=== PATIENT | male | born 1930 | race Hispanic/Latino ===

== ENCOUNTER 2018-02-07 09:08 | Inpatient (IN) | payer MEDICARE ==
[2018-02-07 09:23] VITALS: BMI 12.9
[2018-02-07] MEDS ORDERED: Dextrose 50% SYRINGE Inj (50 ml) ONE ×2 (09:42→10:39)
[2018-02-07] MEDS ORDERED: Dextrose 5%/0.9% NS 1,000 ML IV ONE ×3 (09:57→21:25)
[2018-02-07] MEDS ORDERED: Dextrose 50% SYRINGE Inj (50 ml) IVP STA ×2 (09:57→10:36)
[2018-02-07 10:13] LABS: VENOUS BLOOD GAS BASE EXCESS 7.7 mmol/L (0.0-2.0); VENOUS BLOOD GAS PCO2 59 mmHg (40-60); VENOUS BLOOD GAS PO2 11 mm/Hg (30-55); VENOUS BLOOD PH 7.38 (7.32-7.43)
[2018-02-07 10:23] LABS: ALB/GLOB RATIO 0.9 (1.0-2.1); ALBUMIN 3.4 g/dL (3.5-5.0); ALT/SGPT 18 U/L (21-72); AST/SGOT 34 U/L (17-59); BLOOD UREA NITROGEN 49 mg/dL (9-20); CALCIUM 8.8 mg/dl (8.6-10.4); GFR NON-AFRICAN AMERICAN > 60
--- NOTE | 2018-02-07 10:23 | C.PDOC ---
History Of Present Illness Patient ELLEN from home, found in his home weak appearing, c/o abdominal pain today. As per family at bedside, he has had poor PO intake for approx 1-2 weeks. They state he is typically thin (approx 100lbs), but in the past 2 month s he has lost more weight. He has PMHx of cigarette smoking, no other known issues but does not follow up regularly with physician. He was seen last thursday by his PMD, blood work was done but results are pending. Family states he is AAOx3 and ambulates with cane at his baseline, speaks only [place] Islander. Time Seen by Provider: 02/07/18 09:08 Chief Complaint (Nursing): Weakness/Neurological Deficit History Per: Family History/Exam Limitations: clinical condition, language barrier ([place] Islander only ) Onset/Duration Of Symptoms: Days Current Symptoms Are (Timing): Still Present Past Medical History Reviewed: Historical Data, Nursing Documentation, Vital Signs - Medical History Other PMH: tobacco use Family History: States: No Known Family Hx - Social History Hx Alcohol Use: No Hx Substance Use: No Review Of Systems Constitutional: Positive for: Weakness (generalized). Negative for: Fever, Chills Cardiovascular: Negative for: Chest Pain, Palpitations Respiratory: Negative for: Cough, Shortness of Breath Gastrointestinal: Positive for: Abdominal Pain. Negative for: Nausea, Vomiting, Diarrhea Genitourinary: Negative for: Dysuria, Hematuria Neurological: Negative for: Weakness, Numbness, Incoordination, Change in Speech, Headache, Dizziness Physical Exam - Physical Exam Appears: Non-toxic, Chronically Ill, Other (cachectic) Skin: Normal Color, Warm, Dry, Other (dry sclaey skin on extensors surfaces of arms/legs) Head: Atraumatic, Normacephalic Eye(s): bilateral: Normal Inspection, PERRL, EOMI Oral Mucosa: Dry Cardiovascular: Rhythm Regular Respiratory: Normal Breath Sounds, No Rales, No Rhonchi, No Wheezing Gastrointestinal/Abdominal: Bowel Sounds, Soft, Tenderness (mild diffuse TTP), No Distention, No Guarding, No Rebound ED Course And Treatment - Laboratory Results Result Diagrams: 02/07/18 10:07 02/07/18 10:07 O2 Sat by Pulse Oximetry: 100 (RA) Pulse Ox Interpretation: Normal - Radiology CXR: Interpreted by Me, Viewed By Me (B/L infiltrates vs nodules?) Progress Note: Blood work, CT head, CT chest/abd/pelvis, UA, EKG ordered and reviewed. 11:45am- Called by hematology lab - tech states there are immature cells on smear, will refer case to pathologist to be read tomorrow. ? blast cells/acute leukemia. 12:09- Spoke with software development leader Dr. Melendez, if BP drops then will consider for ICU. Patient going to CT scan chest/abd/pelvis - will reassess when returns. 1:20PM- Dr. Melendez software development leader has evaluated patient, is ok for telemetry floor. 1:35pm- Spoke with hospitalist, agrees with admission for pancytopenia, hypoglycemia, failure to thrive/cachexia, possible acute leukemia, dehydration. CT scan chest/abd/pelvis currently pending, they will follow. - Physician Consult Information Physician Contacted: Velasquez Santana Outcome Of Conversation: Discussed patient with hem/onc, would like medical insurance collector to call him ( wants flow cytometry ordered). Will notify. Disposition - Disposition Forms: [employer] (Greenlandic)
[2018-02-07 10:31] LABS: MEAN CORPUSCULAR HEMOGLOBIN 34.2 pg (27.0-31.0); MEAN CORPUSCULAR HGB CONC 33.8 g/dL (33.0-37.0); MEAN PLATELET VOLUME 11.3 fL (7.2-11.7); RBC 3.15 Mil/uL (4.40-5.90); RED CELL DISTRIBUTION WIDTH 14.2 % (11.5-14.5)
[2018-02-07 10:35] LABS: CK-MB 1.49 ng/mL (0.0-3.38); INR 1.2; PROTHROMBIN TIME 13.5 SECONDS (9.7-12.2)
[2018-02-07] MEDS ORDERED: Glucagon Recombinant 1 mg Inj IVPB STA (10:36)
[2018-02-07 10:38] LABS: HEMOGLOBIN 10.8 g/dL (12.0-18.0); MEAN CELL VOLUME 101.2 fL (80.0-94.0); WHITE BLOOD COUNT 1.2 K/uL (4.8-10.8)
[2018-02-07 11:05] LABS: LIPASE < 10 U/L (23-300)
[2018-02-07 11:41] LABS: SQUAMOUS EPITHIAL < 1 /hpf (0-5); URINE BACTERIA RARE (<OCC); URINE BILIRUBIN NEGATIVE (NEGATIVE); URINE CLARITY Hazy (Clear); URINE COLOR Yellow (YELLOW); URINE GLUCOSE (UA) 2+ mg/dL (Normal); URINE LEUKOCYTE ESTERASE NEG Leu/uL (Negative); URINE PROTEIN 1+ mg/dL (NEGATIVE)
[2018-02-07 11:43] LABS: URINE BLOOD TRACE-LYSED (NEGATIVE)
[2018-02-07] MEDS ORDERED: Glucagon Recombinant 1 mg Inj ONE (12:00)
--- NOTE | 2018-02-07 15:03 | CT ---
Date of service: 02/07/2018 PROCEDURE: CT HEAD WITHOUT CONTRAST. HISTORY: weakness COMPARISON: None available. TECHNIQUE: Axial computed tomography images were obtained through the head/brain without intravenous contrast. Radiation dose: Total exam DLP = 1175.83 mGy-cm. This CT exam was performed using one or more of the following dose reduction techniques: Automated exposure control, adjustment of the mA and/or kV according to patient size, and/or use of iterative reconstruction technique. FINDINGS: HEMORRHAGE: No acute parenchymal, subarachnoid or extra-axial hemorrhage. BRAIN: Moderate diffuse confluent chronic white matter ischemic changes seen extending peripherally into deep and subcortical white matter both cerebral hemispheres. There is extension of these changes into the white matter tracts of both basal nuclei. Additionally, scattered more discrete chronic appearing bilateral basal nuclei lacunar type infarcts also present. Note the possibility of a small hyperacute infarct cannot be excluded. Moderate generalized volume loss. No obvious parenchymal nor extra-axial mass or collection seen on this noncontrast exam Minor vascular calcifications both carotid siphons. VENTRICLES: No obstructive hydrocephalus. CALVARIUM: Unremarkable. PARANASAL SINUSES: Subtotal opacification right maxillary antrum with sclerosis and thickening of the posterolateral and anterior veronica.. MASTOID AIR CELLS: Unremarkable as visualized. No inflammatory changes. OTHER FINDINGS: None. IMPRESSION: Normal CT of the Head.
--- NOTE | 2018-02-07 15:27 | RAD ---
Date of service: 02/07/2018 HISTORY: Cachexia. COMPARISON: Comparison made with prior chest radiograph 02/05/2018. FINDINGS: LUNGS: Hyperinflation with extensive centrilobular and panlobular as well as paraseptal emphysematous changes. Localized of spiculated pleural-based mass density in the left lateral upper lung field could represent post inflammatory scarring however possibility of a pleural-based neoplasm not excluded. Clinical correlation recommended.. There appears to be patchy infiltrate in the right mid to lower lung field. PLEURA: No significant pleural effusion identified, no pneumothorax apparent. CARDIOVASCULAR: Mild moderate aortic atherosclerotic calcification present. Normal cardiac size. No pulmonary vascular congestion. OSSEOUS STRUCTURES: No significant abnormalities. VISUALIZED UPPER ABDOMEN: Normal. OTHER FINDINGS: None. IMPRESSION: Hyperinflation with extensive centrilobular and panlobular as well as paraseptal emphysematous changes. Localized of spiculated pleural-based mass density in the left lateral upper lung field could represent post inflammatory scarring however possibility of a pleural-based neoplasm not excluded. Clinical correlation recommended.. There appears to be patchy infiltrate in the right mid to lower lung field.
--- NOTE | 2018-02-07 15:32 | CP.PCM.HP ---
"<Giovany Merritt - Last Filed: 02/07/18 16:46> History of Present Illness - History of Present Illness History of Present Illness: Mr. Ballesteros is an 88 year old Hebrew speaking male who presents from home due generalized weakness. Nephew at bedside. Per nephew, patient has poor PO intake for the past 1-2 weeks. For the past 2 months, the family has been noticing that he has been losing weight. Normally he weighs about 100 lbs. Per nephew he smokes cigars daily for over 50 years. Patient was seen by is PMD for symptoms and has bloodwork pending. Review of systems could not be obtained due to patient's mental status. Per nephew, patient is normally able to speak and understand everything but had difficulty during exam today. At baseline he can preform most of his ADL's, he walks with a cane, and he is AAOx3. ROS: Unobtainable. PMHx: Cataracts, macular degeneration, b/L hearing loss PSHx: Denies Allergies: NKDA SocialHx: Cigar smoker (more than 50 years per nephew), Social EtoH Use, Unknown illicit drug use FamHx: Brother - Prostate CA (Recently diagnosed) Meds: None PMD: Dr. Olson Present on Admission - Present on Admission Any Indicators Present on Admission: Yes Decubitus Ulcer Present: Yes Decubitus Ulcer Location: Gluteal Decubitus Ulcer Stage: I Review of Systems - Review of Systems Systems not reviewed;Unavailable: Altered Mental Status, Language Barrier Past Patient History - Past Social History Smoking Status: Former Smoker - PSYCHIATRIC Hx Substance Use: No - SURGICAL HISTORY Hx Surgeries: No Meds Allergies/Adverse Reactions: Allergies Allergy/AdvReac Type Severity Reaction Status Date / Time No Known Allergies Allergy Verified 02/07/18 13:46 Physical Exam - Constitutional Appears: Toxic, Older Than Stated Age, Cachectic, Chronically Ill - Head Exam Head Exam: ATRAUMATIC, NORMOCEPHALIC - Eye Exam Eye Exam: EOMI, Normal appearance, PERRL - ENT Exam ENT Exam: Mucous Membranes Dry - Neck Exam Neck exam: Negative for: Lymphadenopathy, Tenderness, Thyromegaly - Respiratory Exam Respiratory Exam: Clear to Auscultation Bilateral, NORMAL BREATHING PATTERN. absent: Accessory Muscle Use - Cardiovascular Exam Cardiovascular Exam: +S1, +S2 Additional comments: Decreased Heart Sounds. - GI/Abdominal Exam GI & Abdominal Exam: Normal Bowel Sounds, Soft. absent: Guarding, Organomegaly, Rebound, Rigid, Tenderness - Extremities Exam Extremities exam: Positive for: normal capillary refill, pedal pulses present. Negative for: pedal edema Additional comments: Bilateral Petechiae, Dry - Neurological Exam Neurological exam: Altered - Psychiatric Exam Psychiatric exam: Flat Affect - Skin Skin Exam: Dry, Normal Color, Warm Additional comments: Stage 1 Gluteal Ulcer Results - Vital Signs Recent Vital Signs: Last Vital Signs Temp 97.1 F L 02/07/18 09:30 Pulse 91 H 02/07/18 13:02 Resp 22 02/07/18 13:02 BP 123/41 L 02/07/18 13:02 Pulse Ox 100 02/07/18 13:40 - Labs Result Diagrams: 02/07/18 10:07 02/07/18 10:07 Labs: Laboratory Results - last 24 hr 02/07/18 02/07/18 02/07/18 10:07 10:07 10:07 WBC 1.2 L* RBC 3.15 L Hgb 10.8 L D Hct 31.8 L MCV 101.2 H D MCH 34.2 H MCHC 33.8 RDW 14.2 Plt Count 73 L D MPV 11.3 Differential Comment PT 13.5 H INR 1.2 APTT 32 pO2 VBG pH VBG pCO2 VBG HCO3 VBG Total CO2 VBG O2 Sat (Calc) VBG Base Excess VBG Potassium Glucose Lactate FiO2 Crit Value Called To Crit Value Called By Crit Value Read Back Blood Gas Notified Time Sodium 142 Potassium 3.8 Chloride 98 Carbon Dioxide 33 H Anion Gap 15 BUN 49 H Creatinine 1.0 Est GFR ( Amer) > 60 Est GFR (Non-Af Amer) > 60 Random Glucose 67 L Calcium 8.8 Total Bilirubin 1.2 AST 34 ALT 18 L D Alkaline Phosphatase 90 Total Creatine Kinase 269 H CK-MB (Mass) 1.49 Troponin I 0.0210 Total Protein 7.2 Albumin 3.4 L Globulin 3.8 Albumin/Globulin Ratio 0.9 L Lipase < 10 L Venous Blood Potassium Urine Color Urine Clarity Urine pH Ur Specific [place] Urine Protein Urine Glucose (UA) Urine Ketones Urine Blood Urine Nitrate Urine Bilirubin Urine Urobilinogen Ur Leukocyte Esterase Urine WBC (Auto) Urine RBC (Auto) Ur Squamous Epith Cells Urine Bacteria Hyaline Casts 02/07/18 02/07/18 10:08 11:33 WBC RBC Hgb Hct MCV MCH MCHC RDW Plt Count MPV Differential Comment PT INR APTT pO2 11 L VBG pH 7.38 VBG pCO2 59 VBG HCO3 28.6 VBG Total CO2 36.7 H VBG O2 Sat (Calc) 14.2 L VBG Base Excess 7.7 H VBG Potassium 3.5 L Glucose 61 L Lactate 2.2 H FiO2 21.0 Crit Value Called To Reginald sinclair Crit Value Called By Shaan Crit Value Read Back Y Blood Gas Notified Time 1014 Sodium 144.0 Potassium Chloride 107.0 Carbon Dioxide Anion Gap BUN Creatinine Est GFR ( Amer) Est GFR (Non-Af Amer) Random Glucose Calcium Total Bilirubin AST ALT Alkaline Phosphatase Total Creatine Kinase CK-MB (Mass) Troponin I Total Protein Albumin Globulin Albumin/Globulin Ratio Lipase Venous Blood Potassium 3.5 L Urine Color Yellow Urine Clarity Hazy Urine pH 5.0 Ur Specific [place] 1.021 Urine Protein 1+ H Urine Glucose (UA) 2+ H Urine Ketones 1+ H Urine Blood Trace-lysed Urine Nitrate Negative Urine Bilirubin Negative Urine Urobilinogen 4.0 Ur Leukocyte Esterase Neg Urine WBC (Auto) 1 Urine RBC (Auto) 2 Ur Squamous Epith Cells < 1 Urine Bacteria Rare Hyaline Casts 3-5 H Assessment & Plan - Assessment and Plan (Free Text) Assessment: 88 year old Hebrew speaking male with PMHx of cataracts, macular degeneration, b/L hearing loss, and tobacco abuse admitted for evaluation and treatment of failure to thrive. Plan: Failure to thrive Head CT (Admission): Moderate diffuse confluent chronic white matter ischemic changes seen extending peripherally into deep and subcortical white matter both cerebral hemispheres. There is extension of these changes into the white matter tracts of both basal nuclei. Additionally, scattered more discrete chronic appearing bilateral basal nuclei lacunar type infarcts also present. Note the possibility of a small hyperacute infarct cannot be excluded. Moderate generalized volume loss. No obvious parenchymal nor extra-axial mass or collection seen on this noncontrast exam. Minor vascular calcifications both carotid siphons. CXR (Admission):Hyperinflation with extensive centrilobular and panlobular as well as paraseptal emphysematous changes. Localized of spiculated pleural-based mass density in the left lateral upper lung field could represent post inflammatory scarring however possibility of a pleural-based neoplasm not excluded. Clinical correlation recommended. There appears to be patchy infiltrate in the right mid to lower lung field. Chest/Abd CT (Admission): PENDING READ EKG (Admission): Sinus Rhythm w/ marked sinus arrhythmia w/ first degree AV block. PENDING Official Read. -Anemia Workup -Blood Cultures | Urine Cultures -Palliative Care Consult -Speech/Swallow Eval -02 via [place] -ProCalcitonin -Vitals Q4H -HOB to 30degress -Consider Broad Spectrum Antibiotics. Meds: Marinol 2.5 BID D5 in NS @ 100mls/hr. Pancytopenia Ddx: Leukemia, Lung Malignancy, Myelodysplastic syndrome Heme/Onc Consult (Dr. Santana) -Anemia Workup -Flow Cytometry -Stool Occult Blood Stage I gluteal Ulcer Nursing Wound Care Air Mattress Meds: Neosporin PRN Obstructive Lung Disease CXR (Admission):Hyperinflation with extensive centrilobular and panlobular as well as paraseptal emphysematous changes. Localized of spiculated pleural-based mass density in the left lateral upper lung field could represent post inflammatory scarring however possibility of a pleural-based neoplasm not excluded. Clinical correlation recommended. There appears to be patchy infiltrate in the right mid to lower lung field. -02 via [place] -Consider Pulm Consult Meds: DuoNebs PRN. Proph SCD's NO pharm DVT proph due to pancytopenia GI proph not indicated Patient seen and discussed with Attending Giovany Merritt, PGY-2 <Aquilino Escamilla - Last Filed: 02/07/18 19:37> Results - Vital Signs Recent Vital Signs: Last Vital Signs Temp 101 F H 02/07/18 17:37 Pulse 105 H 02/07/18 17:37 Resp 22 02/07/18 17:37 BP 141/81 02/07/18 17:37 Pulse Ox 94 L 02/07/18 17:37 - Labs Result Diagrams: 02/07/18 10:07 02/07/18 10:07 Labs: Laboratory Results - last 24 hr 02/07/18 02/07/18 02/07/18 10:07 10:07 10:07 WBC 1.2 L* RBC 3.15 L Hgb 10.8 L D Hct 31.8 L MCV 101.2 H D MCH 34.2 H MCHC 33.8 RDW 14.2 Plt Count 73 L D MPV 11.3 Differential Comment Retic Count Haptoglobin PT 13.5 H INR 1.2 APTT 32 pO2 VBG pH VBG pCO2 VBG HCO3 VBG Total CO2 VBG O2 Sat (Calc) VBG Base Excess VBG Potassium Glucose Lactate FiO2 Crit Value Called To Crit Value Called By Crit Value Read Back Blood Gas Notified Time Sodium 142 Potassium 3.8 Chloride 98 Carbon Dioxide 33 H Anion Gap 15 BUN 49 H Creatinine 1.0 Est GFR ( Amer) > 60 Est GFR (Non-Af Amer) > 60 Random Glucose 67 L Hemoglobin A1c Calcium 8.8 Phosphorus Magnesium Iron TIBC % Saturation Ferritin Total Bilirubin 1.2 AST 34 ALT 18 L D Alkaline Phosphatase 90 Total Creatine Kinase 269 H CK-MB (Mass) 1.49 Troponin I 0.0210 Total Protein 7.2 Albumin 3.4 L Globulin 3.8 Albumin/Globulin Ratio 0.9 L Lipase < 10 L Prostate Specific Ag Vitamin B12 25-OH Vitamin D Total Folate Free T4 TSH 3rd Generation Venous Blood Potassium Urine Color Urine Clarity Urine pH Ur Specific [place] Urine Protein Urine Glucose (UA) Urine Ketones Urine Blood Urine Nitrate Urine Bilirubin Urine Urobilinogen Ur Leukocyte Esterase Urine WBC (Auto) Urine RBC (Auto) Ur Squamous Epith Cells Urine Bacteria Hyaline Casts 02/07/18 02/07/18 02/07/18 10:08 11:33 16:09 WBC RBC Hgb Hct MCV MCH MCHC RDW Plt Count MPV Differential Comment Retic Count Haptoglobin PT INR APTT pO2 11 L VBG pH 7.38 VBG pCO2 59 VBG HCO3 28.6 VBG Total CO2 36.7 H VBG O2 Sat (Calc) 14.2 L VBG Base Excess 7.7 H VBG Potassium 3.5 L Glucose 61 L Lactate 2.2 H FiO2 21.0 Crit Value Called To Reginald sinclair Crit Value Called By Shaan Crit Value Read Back Y Blood Gas Notified Time 1014 Sodium 144.0 Potassium Chloride 107.0 Carbon Dioxide Anion Gap BUN Creatinine Est GFR ( Amer) Est GFR (Non-Af Amer) Random Glucose Hemoglobin A1c Calcium Phosphorus Magnesium Iron < 10 L TIBC 181 L % Saturation 5.52 L Ferritin Total Bilirubin AST ALT Alkaline Phosphatase Total Creatine Kinase CK-MB (Mass) Troponin I Total Protein Albumin Globulin Albumin/Globulin Ratio Lipase Prostate Specific Ag Vitamin B12 25-OH Vitamin D Total Folate Free T4 TSH 3rd Generation Venous Blood Potassium 3.5 L Urine Color Yellow Urine Clarity Hazy Urine pH 5.0 Ur Specific [place] 1.021 Urine Protein 1+ H Urine Glucose (UA) 2+ H Urine Ketones 1+ H Urine Blood Trace-lysed Urine Nitrate Negative Urine Bilirubin Negative Urine Urobilinogen 4.0 Ur Leukocyte Esterase Neg Urine WBC (Auto) 1 Urine RBC (Auto) 2 Ur Squamous Epith Cells < 1 Urine Bacteria Rare Hyaline Casts 3-5 H 02/07/18 02/07/18 02/07/18 16:09 16:09 16:09 WBC RBC Hgb Hct MCV MCH MCHC RDW Plt Count MPV Differential Comment Retic Count 0.5 Haptoglobin 162.7 PT INR APTT pO2 VBG pH VBG pCO2 VBG HCO3 VBG Total CO2 VBG O2 Sat (Calc) VBG Base Excess VBG Potassium Glucose Lactate FiO2 Crit Value Called To Crit Value Called By Crit Value Read Back Blood Gas Notified Time Sodium Potassium Chloride Carbon Dioxide Anion Gap BUN Creatinine Est GFR ( Amer) Est GFR (Non-Af Amer) Random Glucose Hemoglobin A1c Calcium Phosphorus 0.9 L* Magnesium 2.1 Iron TIBC % Saturation Ferritin 456.0 Total Bilirubin AST ALT Alkaline Phosphatase Total Creatine Kinase CK-MB (Mass) Troponin I Total Protein Albumin Globulin Albumin/Globulin Ratio Lipase Prostate Specific Ag 0.647 Vitamin B12 607 25-OH Vitamin D Total Folate 5.2 Free T4 0.89 TSH 3rd Generation 1.10 Venous Blood Potassium Urine Color Urine Clarity Urine pH Ur Specific [place] Urine Protein Urine Glucose (UA) Urine Ketones Urine Blood Urine Nitrate Urine Bilirubin Urine Urobilinogen Ur Leukocyte Esterase Urine WBC (Auto) Urine RBC (Auto) Ur Squamous Epith Cells Urine Bacteria Hyaline Casts 02/07/18 02/07/18 16:09 16:09 WBC RBC Hgb Hct MCV MCH MCHC RDW Plt Count MPV Differential Comment Retic Count Haptoglobin PT INR APTT pO2 VBG pH VBG pCO2 VBG HCO3 VBG Total CO2 VBG O2 Sat (Calc) VBG Base Excess VBG Potassium Glucose Lactate FiO2 Crit Value Called To Crit Value Called By Crit Value Read Back Blood Gas Notified Time Sodium Potassium Chloride Carbon Dioxide Anion Gap BUN Creatinine Est GFR ( Amer) Est GFR (Non-Af Amer) Random Glucose Hemoglobin A1c 5.1 Calcium Phosphorus Magnesium Iron TIBC % Saturation Ferritin Total Bilirubin AST ALT Alkaline Phosphatase Total Creatine Kinase CK-MB (Mass) Troponin I Total Protein Albumin Globulin Albumin/Globulin Ratio Lipase Prostate Specific Ag Vitamin B12 25-OH Vitamin D Total < 12.8 L Folate Free T4 TSH 3rd Generation Venous Blood Potassium Urine Color Urine Clarity Urine pH Ur Specific [place] Urine Protein Urine Glucose (UA) Urine Ketones Urine Blood Urine Nitrate Urine Bilirubin Urine Urobilinogen Ur Leukocyte Esterase Urine WBC (Auto) Urine RBC (Auto) Ur Squamous Epith Cells Urine Bacteria Hyaline Casts Attending/Attestation - Attestation I have personally seen and examined this patient.: Yes I have fully participated in the care of the patient.: Yes I have reviewed all pertinent clinical information: Yes Notes (Text): Seen and examined by me. patient is weak and not able to give history. History taken from the Nephew at bedside .Patient lives alone,not ,no children His brothers visit him. patient was not eating well and loosing weight. He is a heavy smoker and heavy alcoholic. Has hearing problem. Vision is not good. patient brother He doesn't think that he has living will or advance directives As per his nephew his mother sister in law of him will be his personal development coach and brothers will be decision makers.We couldn't get his brothers I spoke to his sister in law.Patient was weak and not eating last two weeks No reported fever,no vomiting diarrhea. 1. Cachexia,hypoglycemia 2.Anemia,leukopenia r/o malignancy 3.fever 4.Possible aspiration pneumonia 5.dysphagia I agree with the resident's documentation"
[2018-02-07] MEDS ORDERED: Albuterol-Ipratrop 3 mg / 0.5 (3 ml) UD INH PRN (16:15)
[2018-02-07 16:37] LABS: IRON < 10 ug/dL (49-181)
[2018-02-07] MEDS ORDERED: Bacitracin/Neomycin/Polymyxin Oint(30GM) TOP PRN (16:38)
[2018-02-07 16:43] LABS: TOTAL IRON BINDING CAPACITY 181 ug/dL (250-450)
[2018-02-07 16:49] LABS: % IRON SATURATION 5.52 (20-55); FREE T4 0.89 ng/dL (0.78-2.19)
[2018-02-07] MEDS ORDERED: DEXTROSE IV ONE (17:37)
[2018-02-07] MEDS ORDERED: NS IV ONE (17:37)
[2018-02-07] MEDS ORDERED: SODIUM PHOSPHATE IV ONE (17:37)
[2018-02-07 17:38] LABS: FOLATE 5.2 ng/mL
--- NOTE | 2018-02-07 17:58 | CT ---
Date of service: 02/07/2018 PROCEDURE: CT Chest, Abdomen and Pelvis with intravenous contrast HISTORY: Cachexia. Abdominal pain, r/o malignancy chest and abdomen. COMPARISON: Correlation made with prior chest radiograph earlier same day TECHNIQUE: Contiguous helical/transaxial sections of the chest abdomen pelvis performed without oral or intravenous contrast material. Additional 2D sagittal and coronal reformats generated. Study is therefore limited as a result of the lack of oral and intravenous contrast material. Radiation dose: Total exam DLP = 200.58 mGy-cm. This CT exam was performed using one or more of the following dose reduction techniques: Automated exposure control, adjustment of the mA and/or kV according to patient size, and/or use of iterative reconstruction technique. FINDINGS: CT CHEST WITH CONTRAST: LUNGS: Extensive and severe centrilobular panlobular and paraseptal emphysematous changes are present. Large bulla seen in the posteromedial aspect of the right lower lobe redemonstrated is a pleural based nodular density right lateral upper lobe measuring approximately 16 x 12 mm and exhibits spiculated anterior medial and posterior borders. This lesion which exhibits spiculated borders.. This could conceivably represent old postinflammatory scarring however possibility of a neoplasm must be considered. Vague patchy infiltrate changes are seen in the posterior aspect right upper lobe bordering the fissure. Mild patchy infiltrate changes seen in the right superior aspect right upper lobe made. In addition, there also appear to be chronic of atelectasis and bronchiectasis changes in the right lung base extending superiorly into the upper lobe region. More dense triangular-shaped consolidation bordering the posteromedial pleural surface superior aspect right upper lobe of. Scarring changes are also present in the right middle lobe region.. MEDIASTINUM: Heart size is within range of normal. No significant pericardial effusion. Ascending thoracic aorta measures approximately 3.9 cm and descending thoracic aorta measures approximately 2.5 cm. Partially calcified atherosclerotic plaque changes are present along the ascending transverse and descending thoracic aorta. The trachea is midline. No large central endoluminal lesions. LYMPH NODES: Few small mediastinal lymph nodes are present the largest in the precarinal region just to the right of midline measuring approximately 14 mm. Note that evaluation for hilar adenopathy is limited due to the lack of circulating intravenous contrast material. PLEURA: Unremarkable. No pneumothorax. No pleural fluid. BONES: Multilevel degenerative spondylosis of the thoracic spine. Chronic appearing anterior wedge compression deformity of the T8 segment. Multilevel anterior bridging osteophyte formation present. OTHER FINDINGS: None. CT ABDOMEN AND PELVIS: LIVER: Liver exhibits relatively normal size. No obvious hepatic mass collection or calcification. GALLBLADDER AND BILE DUCTS: Gallbladder appears physiologically distended. No evidence of intraluminal gallbladder calculi. PANCREAS: Pancreas appears atrophic and fatty replaced. SPLEEN: Spleen exhibits normal size and attenuation pattern ADRENALS: Enlarged left adrenal gland KIDNEYS AND URETERS: Kidneys demonstrate relatively symmetric size. No definitive evidence of obstructing nephrolithiasis however renal vascular calcifications are present. VASCULATURE: Mild aortic atherosclerotic calcification or mural plaque present. BOWEL: Unremarkable. No obstruction. No gross mural thickening. APPENDIX: Appendix is not seen with certainty and may not have been included on this study PERITONEUM: Unremarkable. No free fluid. No free air. LYMPH NODES: Unremarkable. No enlarged lymph nodes. BLADDER: Not included on this study REPRODUCTIVE: Not included on this study BONES: Multilevel degenerative spondylosis of the lumbar spine with chronic appearing endplate compression deformities. OTHER FINDINGS: None. IMPRESSION: Extensive and severe centrilobular panlobular and paraseptal emphysematous changes are present. Large bulla seen in the posteromedial aspect of the right lower lobe Redemonstrated is a pleural based nodular density right lateral upper lobe measuring approximately 16 x 12 mm and exhibits spiculated anterior medial and posterior borders. This lesion which exhibits spiculated borders.. This could conceivably represent old postinflammatory scarring however possibility of a neoplasm must be excluded. Vague patchy infiltrate changes are seen in the posterior aspect right upper lobe bordering the fissure. Mild patchy infiltrate changes seen in the right superior aspect right upper lobe made. In addition, there also appear to be chronic of atelectasis and bronchiectasis changes in the right lung base extending superiorly into the upper lobe region. More dense triangular-shaped consolidation bordering the posteromedial pleural surface superior aspect right upper lobe of. Scarring changes are also present in the right middle lobe region.. Ascending thoracic aorta is slightly dilated measuring 3.9 cm. See above discussion for additional details and findings.
[2018-02-07] MEDS: Piperacill/Tazo 3.375gm in Dex 3.375 GM/50 ML BAG IVPB SCH (19:10)
[2018-02-07] MEDS: Azithromycin 500 MG in Sodium Chloride 0.9% 250 ML IVPB SCH (19:41)
[2018-02-07 20:24] LABS: VENOUS BLOOD GAS BASE EXCESS 5.5 mmol/L (0.0-2.0); VENOUS BLOOD GAS PCO2 56 mmHg (40-60); VENOUS BLOOD GAS PO2 22 mm/Hg (30-55); VENOUS BLOOD PH 7.37 (7.32-7.43)
--- NOTE | 2018-02-07 22:28 | PCM.SEPTIC ---
Sepsis Progress Note - Reassessment Type Date of Evaluation: 02/07/18 Time of Evaluation: 21:52 Reassessment Type: Non-invasive reassessment - Non Invasive Reassessment Were the most recent vital sign reviewed: Yes Vital Sign (Latest): Temp Pulse Resp BP Pulse Ox 102.0 F H 97 H 22 90/42 L 96 02/07/18 21:18 02/07/18 21:18 02/07/18 21:18 02/07/18 21:18 02/07/18 21:18 Cardiovascular: Yes: Regular Rate, Rhythm, Tachycardia. No: Chest Non Tender, Gallop, JVD, Murmur, Bradycardia, Irregularly Irregular Respiratory: Yes: Decreased Breath Sounds. No: Crackles, Rales, Rhonchi, Stridor, Wheezing Capillary Refill: Delayed Skin: Warm, Dry - Invasive Reassessment (complete 2 of 4) Was a Central Venous Pressure Measurement obtained within 6 Hours after the presentation of septic shock: No Was a bedside cardiovascular ultrasound performed within 6 hours after the presentation of septic shock: No
[2018-02-07] MEDS ORDERED: Dextrose 5%/0.9% NS 1,000 ML IV SCH (22:45)
[2018-02-08] MEDS: Piperacill/Tazo 3.375gm in Dex 3.375 GM/50 ML BAG IVPB SCH ×5 (01:09→23:36)
--- NOTE | 2018-02-08 04:01 | PCM.SEPTIC ---
Sepsis Progress Note - Reassessment Type Date of Evaluation: 02/08/18 Time of Evaluation: 03:50 Reassessment Type: Non-invasive reassessment - Non Invasive Reassessment Were the most recent vital sign reviewed: Yes Vital Sign (Latest): Temp Pulse Resp BP Pulse Ox 101.1 F H 91 H 22 90/42 L 96 02/08/18 00:00 02/08/18 01:00 02/07/18 21:18 02/07/18 21:18 02/07/18 21:18 Cardiovascular: Yes: Regular Rate, Rhythm. No: Chest Non Tender, Edema, JVD, Friction Rub Respiratory: Yes: Decreased Breath Sounds. No: Crackles, Rales, Rhonchi, Stridor, Wheezing Capillary Refill: Delayed Pulses: Normal Radial Skin: Warm, Dry, Pale - Invasive Reassessment (complete 2 of 4) Was a Central Venous Pressure Measurement obtained within 6 Hours after the presentation of septic shock: No Was a central venous oxygen measurement obtained within 6 hours after the presentation of septic shock: No Was a bedside cardiovascular ultrasound performed within 6 hours after the presentation of septic shock: No
[2018-02-08] MEDS ORDERED: Dextrose 5%/0.9% NS 1,000 ML IV SCH (05:01)
[2018-02-08 06:58] LABS: MEAN CELL VOLUME 101.2 fL (80.0-94.0); MEAN CORPUSCULAR HGB CONC 33.6 g/dL (33.0-37.0); MEAN PLATELET VOLUME 9.1 fL (7.2-11.7); RBC 2.94 Mil/uL (4.40-5.90); RED CELL DISTRIBUTION WIDTH 14.2 % (11.5-14.5)
[2018-02-08 07:45] LABS: INR 1.5; PROTHROMBIN TIME 16.8 SECONDS (9.7-12.2)
--- NOTE | 2018-02-08 07:46 | CP.PCM.PN ---
<Jerad Short - Last Filed: 02/08/18 07:46> Subjective - Date & Time of Evaluation Date of Evaluation: 02/08/18 Time of Evaluation: 07:46 Objective - Vital Signs/Intake and Output Vital Signs (last 24 hours): Temp Pulse Resp BP Pulse Ox 101.1 F H 91 H 22 90/42 L 96 02/08/18 00:00 02/08/18 01:00 02/07/18 21:18 02/07/18 21:18 02/07/18 21:18 Intake and Output: 02/08/18 02/08/18 06:59 18:59 Intake Total 125 Output Total 0 Balance 125 - Medications Medications: Current Medications Acetaminophen (Tylenol 650 Mg Supp) 650 mg ME Q4H PRN PRN Reason: Fever >100.4 F Last Admin: 02/08/18 01:09 Dose: 650 mg Albuterol/Ipratropium (Duoneb 3 Mg/0.5 Mg (3 Ml) Ud) 3 ml INH Q4H PRN PRN Reason: Shortness of Breath Dronabinol (Marinol) 2.5 mg PO BID [facility] Ergocalciferol (Drisdol 50,000 Intl Units Cap) 1 cap PO Q7D [facility] Piperacillin Sod/Tazobactam Sod (Zosyn 3.375 Gm Iv Premix) 3.375 gm in 50 mls @ 100 mls/hr IVPB Q6H [facility]; Protocol Last Admin: 02/08/18 06:19 Dose: 100 mls/hr Ferric Sodium Gluconate Complex 125 mg/ Sodium Chloride 110 mls @ 110 mls/hr IVPB DAILY [facility] Stop: 02/16/18 10:01 Azithromycin 500 mg/ Sodium (Chloride) 250 mls @ 250 mls/hr IVPB DAILY [facility]; Protocol Last Admin: 02/07/18 19:41 Dose: 250 mls/hr Dextrose/Sodium Chloride (Dextrose 5%/0.9% Ns 1000 Ml) 1,000 mls @ 150 mls/hr IV .Q6H40M [facility] Last Admin: 02/08/18 06:29 Dose: 150 mls/hr Neomycin/Polymyxin/Bacitracin (Neosporin Triple Antibiotic Oint) 0 gm TOP BID PRN PRN Reason: Decubitus Ulcer Pneumococcal Polyvalent Vaccine (Pneumovax 23 Vaccine) 0.5 ml IM .ONCE ONE Stop: 02/09/18 10:01 - Labs Labs: 02/08/18 06:55 02/07/18 10:07 PT 16.8 SECONDS (9.7-12.2) H 02/08/18 06:55 INR 1.5 02/08/18 06:55 APTT 36 SECONDS (21-34) H 02/08/18 06:55 <Marlyn Haley V - Last Filed: 02/08/18 10:25> Subjective - Subjective Subjective: Medical Attending Note: Patient seen and examined. Patient is able to say yes or no. He is very weak. Patient's sister in law and brother at bedside. Patient had code sepsis overnight. Patient's sister in law noted he lives alone, he does not eat much to begin with, prominent smoker history. I spoke with sister in law and brother, patient does have living will, but reports patient is DNR/DNI. Objective - Vital Signs/Intake and Output Vital Signs (last 24 hours): Temp Pulse Resp BP Pulse Ox 101.1 F H 91 H 22 90/42 L 96 02/08/18 00:00 02/08/18 01:00 02/07/18 21:18 02/07/18 21:18 02/07/18 21:18 Intake and Output: 02/08/18 02/08/18 06:59 18:59 Intake Total 125 Output Total 0 Balance 125 - Medications Medications: Current Medications Acetaminophen (Tylenol 650 Mg Supp) 650 mg ME Q4H PRN PRN Reason: Fever >100.4 F Last Admin: 02/08/18 01:09 Dose: 650 mg Albuterol/Ipratropium (Duoneb 3 Mg/0.5 Mg (3 Ml) Ud) 3 ml INH Q4H PRN PRN Reason: Shortness of Breath Dronabinol (Marinol) 2.5 mg PO BID [facility] Ergocalciferol (Drisdol 50,000 Intl Units Cap) 1 cap PO Q7D [facility] Piperacillin Sod/Tazobactam Sod (Zosyn 3.375 Gm Iv Premix) 3.375 gm in 50 mls @ 100 mls/hr IVPB Q6H [facility]; Protocol Last Admin: 02/08/18 06:19 Dose: 100 mls/hr Ferric Sodium Gluconate Complex 125 mg/ Sodium Chloride 110 mls @ 110 mls/hr IVPB DAILY [facility] Stop: 02/16/18 10:01 Azithromycin 500 mg/ Sodium (Chloride) 250 mls @ 250 mls/hr IVPB DAILY [facility]; Protocol Last Admin: 02/07/18 19:41 Dose: 250 mls/hr Dextrose/Sodium Chloride (Dextrose 5%/0.9% Ns 1000 Ml) 1,000 mls @ 150 mls/hr IV .Q6H40M [facility] Last Admin: 02/08/18 06:29 Dose: 150 mls/hr Neomycin/Polymyxin/Bacitracin (Neosporin Triple Antibiotic Oint) 0 gm TOP BID PRN PRN Reason: Decubitus Ulcer Pneumococcal Polyvalent Vaccine (Pneumovax 23 Vaccine) 0.5 ml IM .ONCE ONE Stop: 02/09/18 10:01 - Labs Labs: 02/08/18 06:55 02/07/18 10:07 PT 16.8 SECONDS (9.7-12.2) H 02/08/18 06:55 INR 1.5 02/08/18 06:55 APTT 36 SECONDS (21-34) H 02/08/18 06:55 - Constitutional Appears: Unkempt, Cachectic, Chronically Ill - Head Exam Head Exam: NORMAL INSPECTION Additional comments: temporal wasting pallor cachexia - Eye Exam Eye Exam: EOMI - ENT Exam ENT Exam: Mucous Membranes Dry - Respiratory Exam Respiratory Exam: Decreased Breath Sounds, NORMAL BREATHING PATTERN. absent: Respiratory Distress, Stridor - GI/Abdominal Exam GI & Abdominal Exam: Soft, Normal Bowel Sounds. absent: Distended, Guarding, Rigid, Tenderness, Hyperactive Bowel Sounds, Rebound Additional comments: cachexia - Extremities Exam Extremities Exam: absent: Pedal Edema, Tenderness Additional comments: scds b/l - Back Exam Back Exam: absent: CVA tenderness (L), CVA tenderness (R) - Neurological Exam Neurological Exam: Alert, Awake Additional comments: patient is very weak, will says yes/no - Skin Skin Exam: Pallor, Pallor. absent: Petechiae, Rash Assessment and Plan (1) Failure to thrive Status: Acute (2) Cachexia Status: Acute (3) Neutropenia Status: Acute (4) Electrolyte imbalance Status: Acute (5) Anemia Status: Acute (6) Thrombocytopenia Status: Acute (7) Abnormal finding on urinalysis Status: Acute (8) Prophylactic measure Status: Acute Attending/Attestation - Attestation I have personally seen and examined this patient.: Yes I have fully participated in the care of the patient.: Yes I have reviewed all pertinent clinical information, including history, physical exam and plan: Yes Notes (Text): 1. Sepsis Pneumonia Urinary Tract Infection Assessment/Plan * Criteria: Fever (Tmax: 102F), neutropenia, tachycardia, elevated procalcitonin * Suspected source: urine * Lactic acid: 2.2-->4.8-->2.8 * Infectious Disease (Dr. Chirinos) on case-->help appreciated * Zosyn 3.375g IV Q6H (active since 02/07/18) * Azithromycin 500mg IV qdaily (active since 02/07/18) * CT Chest/Abdomen (02/07/18): extensive and severe centriolubular panlobular and paraseptal emphysematous changes are present. large bulla seen in posteromedial aspect of right lower lobe. Redemonstrared is pleural based nodular denisty right lateral upper lobe measuring [id number] and exhibits spiculated anterior medial and posterior borders. Patchy infiltrate changes in the posterior aspect right upper lobe, Atectasis and bronchiectasis changes in the right lung base extending superiorly into upper lobe . More dense triaangular-shaped consolidation bordering the posteromedial pleural surface superior aspect right upper lobe. Ascending thoracic aorta is slighlty dilated measuring 3.9cm * Tylenol 650mg PO Q4H PRN rectal 2. Altered Mental Status Assessment/Plan * likely secondary to sepsis * CT Head: moderate diffuse confluent chronic white matter ischemic changes seen extending peripherally into deep and subcortical white matter both cerebral hemispheres. Extension of these changes into the white matter tracts of both basal nuclei. Scattered more discrete chronic appearing bilateral basal nuclear lacunar ype of infarcts. moderate general volume loss 3. Failure to Thrive * Patient is very weak and cachextic * Strong smoking history abnormal CT chest/abdomen * Likely also fighting off pneumonia and urinary tract infection * prominent smoking history * calorie count * Accuchecks Q6H * Hypoglycemic protocol 4. Prior history of stroke Assessment/Plan * CT Head: moderate diffuse confluent chronic white matter ischemic changes seen extending peripherally into deep and subcortical white matter both cerebral hemispheres. Extension of these changes into the white matter tracts of both basal nuclei. Scattered more discrete chronic appearing bilateral basal nuclear lacunar ype of infarcts. moderate general volume loss 4. Neutropenia Anemia Thrombocytopenia Assessment/Plan * Heme-oncology on case * suspected sepsis vs malignancy * Check HIV 1 and 2 * CT Chest/Abdomen (02/07/18): extensive and severe centriolubular panlobular and paraseptal emphysematous changes are present. large bulla seen in posteromedial aspect of right lower lobe. Redemonstrared is pleural based nodular denisty right lateral upper lobe measuring [id number] and exhibits spiculated anterior medial and posterior borders. Patchy infiltrate changes in the posterior aspect right upper lobe, Atectasis and bronchiectasis changes in the right lung base extending superiorly into upper lobe . More dense triaangular-shaped consolidation bordering the posteromedial pleural surface superior aspect right upper lobe. Ascending thoracic aorta is slighlty dilated measuring 3.9cm * CT Head: moderate diffuse confluent chronic white matter ischemic changes seen extending peripherally into deep and subcortical white matter both cerebral hemispheres. Extension of these changes into the white matter tracts of both basal nuclei. Scattered more discrete chronic appearing bilateral basal nuclear lacunar ype of infarcts. moderate general volume loss * Flow cytometry * Ferric Sodium Gluconate IVOB daily 5. Emphysema Assessment/Plan * CT Chest/Abdomen (02/07/18): extensive and severe centriolubular panlobular and paraseptal emphysematous changes are present. large bulla seen in posteromedial aspect of right lower lobe. Redemonstrared is pleural based nodular denisty right lateral upper lobe measuring [id number] and exhibits spiculated anterior medial and posterior borders. Patchy infiltrate changes in the posterior aspect right upper lobe, Atectasis and bronchiectasis changes in the right lung base extending superiorly into upper lobe . More dense triaangular-shaped consolidation bordering the posteromedial pleural surface superior aspect right upper lobe. Ascending thoracic aorta is slighlty dilated measuring 3.9cm * Duoneb 3ml INH Q4H blaine shortness of breathe * Start Spiriva 18mcg inhaled * Patient is a heavy smoker per review of EMR * Pulmonary consult in light of emphysema and spiculated nodule 6. Smoking History Assessment/Plan * Nicoderm patch daily * patient is very weak unable to properly food counselor against smoking at this time 7. Abnormal UA Assessment/Plan * pending urine culture * infectious disease on board 8. Pneumonia Assessment/Plan * Concern for aspiration * Aspiration precautions * Patient has Zosyn/Azithromycin dean of admissions 9. Possible sacral decub Assessment/Plan * Turn [id number] * Wound care nursing referral 10. Prophylactic measure * PICC line consult for IV fluids and IV abx * chemical anticoagulation contraindication secondary to thrombocytopenia * Physical therapy and occcupational therapy eval * Aspiration precautions * Swallow eval * Palliative care consult * Point of contact: nephew his mother sister in law of him will be his supervisor personnel clerks and brothers will be decision maker * D5NS 150cc/hr * Dronabinol 2.5mg PO BID Disposition: pending workup as described above. Discussed with sister in law and brother, patient does have a living will. advised to bring in. patient is a DNR/DNI. Patient has 2 peripheral lines (one 18 and one 20). We will hold central line placement at this time. We will need to see in regards to how family feels in regards to pressor if blood pressure does not improve with fluids.
[2018-02-08 08:12] LABS: ALB/GLOB RATIO 0.9 (1.0-2.1); ALBUMIN 3.2 g/dL (3.5-5.0); ALT/SGPT 18 U/L (21-72); AST/SGOT 69 U/L (17-59); BLOOD UREA NITROGEN 50 mg/dL (9-20); CALCIUM 8.4 mg/dl (8.6-10.4); GFR NON-AFRICAN AMERICAN 57
[2018-02-08] MEDS ORDERED: Glucagon Recombinant 1 mg Inj IM PRN (09:00)
[2018-02-08] MEDS ORDERED: Dextrose 50% SYRINGE Inj (50 ml) IVP PRN (09:00)
[2018-02-08] MEDS ORDERED: Sodium Chloride 0.9% 1,000 ML IV ONE ×3 (09:01→12:58)
[2018-02-08] MEDS ORDERED: Tiotropium 18 mcg Cap For Inhalation INH ONE (09:15)
[2018-02-08] MEDS: Azithromycin 500 MG in Sodium Chloride 0.9% 250 ML IVPB SCH (09:18)
[2018-02-08] MEDS ORDERED: Potassium Phosphate 15 MMOLE in Dextrose 5% In Water 250 ML IVPB ONE (09:45)
[2018-02-08] MEDS ORDERED: Ferric Sodium Gluconat Complex 62.5 mg/5 ml Vial IVPB SCH (10:00)
[2018-02-08] MEDS ORDERED: Ergocalciferol 50,000 Intl Units Cap PO SCH (10:00)
[2018-02-08 10:24] LABS: LYMPH # 0.6 K/uL (1.0-4.3); MONO # 0.2 K/uL (0.0-0.8); NEUT # 1.2 K/uL (1.8-7.0)
--- NOTE | 2018-02-08 11:12 | CP.PCM.CON ---
History of Present Illness - History of Present Illness History of Present Illness: 88 year old [place] male who presents from home due generalized weakness. Admitted with sepsis, abnormal CXR r/o malignancy Starrted IV antibiotics empirically cultures pending DNR in effect PMHx: Cataracts, macular degeneration, b/L hearing loss PSHx: Denies Allergies: NKDA SocialHx: Cigar smoker (more than 50 years per nephew), Social EtoH Use, Unknown illicit drug use FamHx: Brother - Prostate CA (Recently diagnosed) Meds: None Review of Systems - Review of Systems Systems not reviewed;Unavailable: Altered Mental Status All systems: reviewed and no additional remarkable complaints except - Constitutional Constitutional: As Per HPI - EENT Eyes: absent: As Per HPI, Blind Spots, Blurred Vision, Change in Vision, Decreased Night Vision, Diplopia, Discharge, Dry Eye, Exophthalmos, Floaters, Irritation, Itchy Eyes, Loss of Peripheral Vision, Pain, Photophobia, Requires Corrective Lenses, Sees Flashes, Spots in Vision, Tunnel Vision, Other Visual Disturbances, Loss of Vision, Other Ears: absent: As Per HPI, Decreased Hearing, Ear Discharge, Ear Pain, Tinnitus, Abnormal Hearing, Disequilibrium, Dizziness, Other Nose/Mouth/Throat: absent: As Per HPI, Epistaxis, Nasal Congestion, Nasal Discharge, Nasal Obstruction, Nasal Trauma, Nose Pain, Post Nasal Drip, Sinus Pain, Sinus Pressure, Bleeding Gums, Change in Voice, Dental Pain, Dry Mouth, Dysphagia, Halitosis, Hoarsness, Lip Swelling, Mouth Lesions, Mouth Pain, Odynophagia, Sore Throat, Throat Swelling, Tongue Swelling, Facial Pain, Neck Pain, Neck Mass, Other - Cardiovascular Cardiovascular: absent: As Per HPI, Acrocyanosis, Chest Pain, Chest Pain at Rest, Chest Pain with Activity, Claudication, Diaphoresis, Dyspnea, Dyspnea on Exertion, Edema, Irregular Heart Rhythm, Pain Radiating to Arm/Neck/Jaw, Leg Edema, Leg Ulcers, Lightheadedness, Orthopnea, Palpitations, Paroxysmal Nocturnal Dyspnea, Pedal Edema, Radiating Pain, Rapid Heart Rate, Slow Heart Rate, Syncope, Other - Respiratory Respiratory: As Per HPI - Gastrointestinal Gastrointestinal: absent: As Per HPI, Abdominal Pain, Belching, Bloating, Change in Bowel Habits, Change in Stool Character, Coffee Ground Emesis, Constipation, Cramping, Diarrhea, Dyspepsia, Dysphagia, Early Satiety, Excessive Flatus, Fecal Incontinence, Heartburn, Hematemesis, Hematochezia, Loose Stools, Melena, Nausea, Odynophagia, Temesmus, Vomiting, Other - Genitourinary Genitourinary: absent: As Per HPI, Change in Urinary Stream, Difficulty Urinating, Dysuria, Flank Pain, Hematuria, Pyuria, Nocturia, Urinary Incontinence, Urinary Frequency, Urinary Hesitance, Urinary Urgency, Voiding Freq/Small Amts, Freq UTI, Hx Renal/Bladder Calculi, Hx /Renal Surgery, Bladder Distension, Other - Musculoskeletal Musculoskeletal: absent: As Per HPI, Abnormal Gait, Arthralgias, Atrophy, Back Pain, Deformity, Joint Swelling, Limited Range of Motion, Loss of Height, Muscle Cramps, Muscle Weakness, Myalgias, Neck Pain, Numbness, Radiating Pain into Limb, Stiffness, Tingling, Other - Integumentary Integumentary: absent: As Per HPI, Acne, Alopecia, Bleeding Lesions, Change in Hair, Change in Nails, Change in Pigmentation, Changing Lesions, Dry Skin, Erythema, Furuncle, Hirsutism, Lesions, New Lesions, Non-Healing Lesions, Photosensitivity, Pruritus, Rash, Skin Pain, Skin Ulcer, Sores, Striae, Swelling, Unusual Bruising, Wounds, Jaundice, Other - Neurological Neurological: absent: As Per HPI, Abnormal Gait, Abnormal Hearing, Abnormal Movements, Abnormal Speech, Behavioral Changes, Burning Sensations, Confusion, Convulsions, Disequilibrium, Dizziness, Numbness, Focal Weakness, Frequent Falls, Headaches, Lack of Coordination, Loss of Vision, Memory Loss, Pare sthesias, Radicular Pain, Restless Legs, Sensory Deficit, Syncope, Tingling, Tremor, Vertigo, Weakness, Other Visual Disturbances, Other - Psychiatric Psychiatric: absent: As Per HPI, Abnormal Sleep Pattern, Anhedonia, Anxiety, Auditory Hallucinations, Behavioral Changes, Change in Appetite, Change in Libido, Confusion, Depression, Difficulty Concentrating, Hallucinations, Homicidal Ideation, Hopelessness, Irritability, Memory Loss, Mood Swings, Panic Attacks, Paranoia, Suicidal Ideation, Visual Hallucinations, Tactile Hallucinations, Other - Endocrine Endocrine: absent: As Per HPI, Change in Body Appearance, Change in Libido, Cold Intolorance, Deepening of Voice, Excessive Sweating, Fatigue, Flushing, Heat Intolorance, Increase in Ring/Shoe/Hat Size, Palpitations, Polydipsia, Polyphagia, Polyuria, Other Past Patient History - Past Medical History & Family History Past Medical History?: Yes - Past Social History Smoking Status: Never Smoked - CARDIAC Hx Cardiac Disorders: No - PULMONARY Hx Respiratory Disorders: No - NEUROLOGICAL Hx Neurological Disorder: No - HEENT Hx HEENT Problems: Yes Hx Cataracts: Yes Hx Deafness: Yes (colt.) Hx Macular Degeneration: Yes - RENAL Hx Chronic Kidney Disease: No - ENDOCRINE/METABOLIC Hx Endocrine Disorders: No - HEMATOLOGICAL/ONCOLOGICAL Hx Blood Disorders: No - INTEGUMENTARY Hx Dermatological Problems: No - MUSCULOSKELETAL/RHEUMATOLOGICAL Hx Musculoskeletal Disorders: Yes Hx Back Pain: Yes Hx Falls: No - GASTROINTESTINAL Hx Gastrointestinal Disorders: No - GENITOURINARY/GYNECOLOGICAL Hx Genitourinary Disorders: No - PSYCHIATRIC Hx Psychophysiologic Disorder: No Hx Substance Use: No - SURGICAL HISTORY Hx Surgeries: No - ANESTHESIA Hx Anesthesia: No Hx Anesthesia Reactions: No Hx Malignant Hyperthermia: No Has any member of the family had a problem w/ anesthesia?: No Meds Allergies/Adverse Reactions: Allergies Allergy/AdvReac Type Severity Reaction Status Date / Time No Known Allergies Allergy Verified 02/07/18 13:46 - Medications Medications: Current Medications Acetaminophen (Tylenol 650 Mg Supp) 650 mg VA Q4H PRN PRN Reason: Fever >100.4 F Last Admin: 02/08/18 01:09 Dose: 650 mg Albuterol/Ipratropium (Duoneb 3 Mg/0.5 Mg (3 Ml) Ud) 3 ml INH RQ4 [facility]ERO Dextrose (Dextrose 50% Inj) 0 ml IVP .STAT PRN; Protocol PRN Reason: Hypoglycemia Protocol Dextrose (Glutose 15) 0 gm PO .ONCE PRN; Protocol PRN Reason: Hypoglycemia Protocol Dronabinol (Marinol) 2.5 mg PO BID OMERO Ergocalciferol (Drisdol 50,000 Intl Units Cap) 1 cap PO Q7D [facility] Glucagon (Glucagen Diagnostic Kit) 0 mg IM .STAT PRN; Protocol PRN Reason: Hypoglycemia Protocol Piperacillin Sod/Tazobactam Sod (Zosyn 3.375 Gm Iv Premix) 3.375 gm in 50 mls @ 100 mls/hr IVPB Q6H OMERO; Protocol Last Admin: 02/08/18 11:04 Dose: 100 mls/hr Ferric Sodium Gluconate Complex 125 mg/ Sodium Chloride 110 mls @ 110 mls/hr IV PB DAILY OMERO Stop: 02/16/18 10:01 Azithromycin 500 mg/ Sodium (Chloride) 250 mls @ 250 mls/hr IVPB DAILY OMERO; Protocol Last Admin: 02/08/18 09:18 Dose: 250 mls/hr Dextrose/Sodium Chloride (Dextrose 5%/0.9% Ns 1000 Ml) 1,000 mls @ 150 mls/hr IV .Q6H40M OMERO Last Admin: 02/08/18 06:29 Dose: 150 mls/hr Dextrose (Dextrose 5% In Water 1000 Ml) 1,000 mls @ 0 mls/hr IV .Q0M PRN; Protocol PRN Reason: Hypoglycemia Protocol Potassium Phosphate 15 mmole/ (Dextrose) 255 mls @ 42.5 mls/hr IVPB ONCE ONE Stop: 02/08/18 15:44 Last Admin: 02/08/18 11:06 Dose: 42.5 mls/hr Neomycin/Polymyxin/Bacitracin (Neosporin Triple Antibiotic Oint) 0 gm TOP BID PRN PRN Reason: Decubitus Ulcer Nicotine (Nicoderm Cq) 1 patch TD DAILY [facility] Last Admin: 02/08/18 11:06 Dose: 1 patch Pneumococcal Polyvalent Vaccine (Pneumovax 23 Vaccine) 0.5 ml IM .ONCE ONE Stop: 02/09/18 10:01 Tiotropium [place] (Spiriva) 18 mcg INH RQ24 [facility] Physical Exam - Constitutional Appears: In Acute Distress, Confused, Cachectic, Chronically Ill - Head Exam Head Exam: ATRAUMATIC, NORMAL INSPECTION, NORMOCEPHALIC - Eye Exam Eye Exam: PERRL, Scleral icterus - ENT Exam ENT Exam: Mucous Membranes Dry, Normal External Ear Exam - Neck Exam Neck exam: Positive for: Normal Inspection - Respiratory Exam Respiratory Exam: Decreased Breath Sounds, Prolonged Expiratory Phase, Rales, Rhonchi - Cardiovascular Exam Cardiovascular Exam: REGULAR RHYTHM, +S1, +S2 - GI/Abdominal Exam GI & Abdominal Exam: Diminished Bowel Sounds, Hypoactive Bowel Sounds - Rectal Exam Rectal Exam: Deferred - Exam Exam: NORMAL INSPECTION - Extremities Exam Extremities exam: Positive for: pedal pulses present - Back Exam Back exam: absent: NORMAL INSPECTION - Neurological Exam Neurological exam: Altered, CN II-XII Intact - Psychiatric Exam Psychiatric exam: Depressed - Skin Skin Exam: Intact Results - Vital Signs Recent Vital Signs: Last Vital Signs Temp 97.6 F 02/08/18 08:00 Pulse 83 02/08/18 01:00 Resp 24 02/08/18 08:00 BP 86/44 L 02/08/18 08:00 Pulse Ox 100 02/08/18 08:00 - Labs Result Diagrams: 02/08/18 06:55 02/08/18 06:55 Labs: Laboratory Results - last 24 hr 02/07/18 02/07/18 02/07/18 09:35 09:37 09:39 WBC RBC Hgb Hct MCV MCH MCHC RDW Plt Count MPV Neut % (Auto) Lymph % (Auto) [place] % (Auto) Eos % (Auto) Baso % (Auto) Neut # (Auto) Lymph # (Auto) [place] # (Auto) Eos # (Auto) Baso # (Auto) Differential Comment Retic Count Haptoglobin PT INR APTT pO2 VBG pH VBG pCO2 VBG HCO3 VBG Total CO2 VBG O2 Sat (Calc) VBG Base Excess VBG Potassium Sodium Chloride Glucose Lactate Blood Gas Comments Crit Value Called To Crit Value Called By Crit Value Read Back Blood Gas Notified Time Potassium Carbon Dioxide Anion Gap BUN Creatinine Est GFR ( Amer) Est GFR (Non-Af Amer) POC Glucose (mg/dL) 60 L 22 L* 22 L* Random Glucose Hemoglobin A1c Lactic Acid Calcium Phosphorus Magnesium Iron TIBC % Saturation Ferritin Total Bilirubin AST ALT Alkaline Phosphatase Total Protein Albumin Globulin Albumin/Globulin Ratio Prostate Specific Ag Vitamin B12 25-OH Vitamin D Total Folate Procalcitonin Free T4 TSH 3rd Generation Venous Blood Potassium Urine Color Urine Clarity Urine pH Ur Specific [place] Urine Protein Urine Glucose (UA) Urine Ketones Urine Blood Urine Nitrate Urine Bilirubin Urine Urobilinogen Ur Leukocyte Esterase Urine WBC (Auto) Urine RBC (Auto) Ur Squamous Epith Cells Urine Bacteria Hyaline Casts Stool Occult Blood HIV 1&2 Antibody Screen 02/07/18 02/07/18 02/07/18 10:07 10:30 10:32 WBC 1.2 L* RBC 3.15 L Hgb 10.8 L D Hct 31.8 L MCV 101.2 H D MCH 34.2 H MCHC 33.8 RDW 14.2 Plt Count 73 L D MPV 11.3 Neut % (Auto) Lymph % (Auto) [place] % (Auto) Eos % (Auto) Baso % (Auto) Neut # (Auto) Lymph # (Auto) [place] # (Auto) Eos # (Auto) Baso # (Auto) Differential Comment Retic Count Haptoglobin PT INR APTT pO2 VBG pH VBG pCO2 VBG HCO3 VBG Total CO2 VBG O2 Sat (Calc) VBG Base Excess VBG Potassium Sodium Chloride Glucose Lactate Blood Gas Comments Crit Value Called To Crit Value Called By Crit Value Read Back Blood Gas Notified Time Potassium Carbon Dioxide Anion Gap BUN Creatinine Est GFR ( Amer) Est GFR (Non-Af Amer) POC Glucose (mg/dL) 30 L* 20 L* Random Glucose Hemoglobin A1c Lactic Acid Calcium Phosphorus Magnesium Iron TIBC % Saturation Ferritin Total Bilirubin AST ALT Alkaline Phosphatase Total Protein Albumin Globulin Albumin/Globulin Ratio Prostate Specific Ag Vitamin B12 25-OH Vitamin D Total Folate Procalcitonin Free T4 TSH 3rd Generation Venous Blood Potassium Urine Color Urine Clarity Urine pH Ur Specific [place] Urine Protein Urine Glucose (UA) Urine Ketones Urine Blood Urine Nitrate Urine Bilirubin Urine Urobilinogen Ur Leukocyte Esterase Urine WBC (Auto) Urine RBC (Auto) Ur Squamous Epith Cells Urine Bacteria Hyaline Casts Stool Occult Blood HIV 1&2 Antibody Screen 02/07/18 02/07/18 02/07/18 11:33 11:49 12:30 WBC RBC Hgb Hct MCV MCH MCHC RDW Plt Count MPV Neut % (Auto) Lymph % (Auto) [place] % (Auto) Eos % (Auto) Baso % (Auto) Neut # (Auto) Lymph # (Auto) [place] # (Auto) Eos # (Auto) Baso # (Auto) Differential Comment Retic Count Haptoglobin PT INR APTT pO2 VBG pH VBG pCO2 VBG HCO3 VBG Total CO2 VBG O2 Sat (Calc) VBG Base Excess VBG Potassium Sodium Chloride Glucose Lactate Blood Gas Comments Crit Value Called To Crit Value Called By Crit Value Read Back Blood Gas Notified Time Potassium Carbon Dioxide Anion Gap BUN Creatinine Est GFR ( Amer) Est GFR (Non-Af Amer) POC Glucose (mg/dL) 208 H 211 H Random Glucose Hemoglobin A1c Lactic Acid Calcium Phosphorus Magnesium Iron TIBC % Saturation Ferritin Total Bilirubin AST ALT Alkaline Phosphatase Total Protein Albumin Globulin Albumin/Globulin Ratio Prostate Specific Ag Vitamin B12 25-OH Vitamin D Total Folate Procalcitonin Free T4 TSH 3rd Generation Venous Blood Potassium Urine Color Yellow Urine Clarity Hazy Urine pH 5.0 Ur Specific [place] 1.021 Urine Protein 1+ H Urine Glucose (UA) 2+ H Urine Ketones 1+ H Urine Blood Trace-lysed Urine Nitrate Negative Urine Bilirubin Negative Urine Urobilinogen 4.0 Ur Leukocyte Esterase Neg Urine WBC (Auto) 1 Urine RBC (Auto) 2 Ur Squamous Epith Cells < 1 Urine Bacteria Rare Hyaline Casts 3-5 H Stool Occult Blood HIV 1&2 Antibody Screen 02/07/18 02/07/18 02/07/18 16:09 16:09 16:09 WBC RBC Hgb Hct MCV MCH MCHC RDW Plt Count MPV Neut % (Auto) Lymph % (Auto) [place] % (Auto) Eos % (Auto) Baso % (Auto) Neut # (Auto) Lymph # (Auto) [place] # (Auto) Eos # (Auto) Baso # (Auto) Differential Comment Retic Count 0.5 Haptoglobin PT INR APTT pO2 VBG pH VBG pCO2 VBG HCO3 VBG Total CO2 VBG O2 Sat (Calc) VBG Base Excess VBG Potassium Sodium Chloride Glucose Lactate Blood Gas Comments Crit Value Called To Crit Value Called By Crit Value Read Back Blood Gas Notified Time Potassium Carbon Dioxide Anion Gap BUN Creatinine Est GFR ( Amer) Est GFR (Non-Af Amer) POC Glucose (mg/dL) Random Glucose Hemoglobin A1c Lactic Acid Calcium Phosphorus 0.9 L* Magnesium 2.1 Iron < 10 L TIBC 181 L % Saturation 5.52 L Ferritin 456.0 Total Bilirubin AST ALT Alkaline Phosphatase Total Protein Albumin Globulin Albumin/Globulin Ratio Prostate Specific Ag 0.647 Vitamin B12 607 25-OH Vitamin D Total Folate 5.2 Procalcitonin Free T4 TSH 3rd Generation 1.10 Venous Blood Potassium Urine Color Urine Clarity Urine pH Ur Specific [place] Urine Protein Urine Glucose (UA) Urine Ketones Urine Blood Urine Nitrate Urine Bilirubin Urine Urobilinogen Ur Leukocyte Esterase Urine WBC (Auto) Urine RBC (Auto) Ur Squamous Epith Cells Urine Bacteria Hyaline Casts Stool Occult Blood HIV 1&2 Antibody Screen 02/07/18 02/07/18 02/07/18 16:09 16:09 16:09 WBC RBC Hgb Hct MCV MCH MCHC RDW Plt Count MPV Neut % (Auto) Lymph % (Auto) [place] % (Auto) Eos % (Auto) Baso % (Auto) Neut # (Auto) Lymph # (Auto) [place] # (Auto) Eos # (Auto) Baso # (Auto) Differential Comment Retic Count Haptoglobin 162.7 PT INR APTT pO2 VBG pH VBG pCO2 VBG HCO3 VBG Total CO2 VBG O2 Sat (Calc) VBG Base Excess VBG Potassium Sodium Chloride Glucose Lactate Blood Gas Comments Crit Value Called To Crit Value Called By Crit Value Read Back Blood Gas Notified Time Potassium Carbon Dioxide Anion Gap BUN Creatinine Est GFR ( Amer) Est GFR (Non-Af Amer) POC Glucose (mg/dL) Random Glucose Hemoglobin A1c 5.1 Lactic Acid Calcium Phosphorus Magnesium Iron TIBC % Saturation Ferritin Total Bilirubin AST ALT Alkaline Phosphatase Total Protein Albumin Globulin Albumin/Globulin Ratio Prostate Specific Ag Vitamin B12 25-OH Vitamin D Total < 12.8 L Folate Procalcitonin Free T4 0.89 TSH 3rd Generation Venous Blood Potassium Urine Color Urine Clarity Urine pH Ur Specific [place] Urine Protein Urine Glucose (UA) Urine Ketones Urine Blood Urine Nitrate Urine Bilirubin Urine Urobilinogen Ur Leukocyte Esterase Urine WBC (Auto) Urine RBC (Auto) Ur Squamous Epith Cells Urine Bacteria Hyaline Casts Stool Occult Blood HIV 1&2 Antibody Screen 02/07/18 02/07/18 02/07/18 16:40 20:04 20:04 WBC RBC Hgb Hct MCV MCH MCHC RDW Plt Count MPV Neut % (Auto) Lymph % (Auto) [place] % (Auto) Eos % (Auto) Baso % (Auto) Neut # (Auto) Lymph # (Auto) [place] # (Auto) Eos # (Auto) Baso # (Auto) Differential Comment Retic Count Haptoglobin PT INR APTT pO2 VBG pH VBG pCO2 VBG HCO3 VBG Total CO2 VBG O2 Sat (Calc) VBG Base Excess VBG Potassium Sodium Chloride Glucose Lactate Blood Gas Comments Crit Value Called To Crit Value Called By Crit Value Read Back Blood Gas Notified Time Potassium Carbon Dioxide Anion Gap BUN Creatinine Est GFR ( Amer) Est GFR (Non-Af Amer) POC Glucose (mg/dL) 125 H Random Glucose Hemoglobin A1c Lactic Acid Calcium Phosphorus 0.9 L* Magnesium Iron TIBC % Saturation Ferritin Total Bilirubin AST ALT Alkaline Phosphatase Total Protein Albumin Globulin Albumin/Globulin Ratio Prostate Specific Ag Vitamin B12 25-OH Vitamin D Total Folate Procalcitonin 17.41 H Free T4 TSH 3rd Generation Venous Blood Potassium Urine Color Urine Clarity Urine pH Ur Specific [place] Urine Protein Urine Glucose (UA) Urine Ketones Urine Blood Urine Nitrate Urine Bilirubin Urine Urobilinogen Ur Leukocyte Esterase Urine WBC (Auto) Urine RBC (Auto) Ur Squamous Epith Cells Urine Bacteria Hyaline Casts Stool Occult Blood HIV 1&2 Antibody Screen 02/07/18 02/08/18 02/08/18 20:10 00:45 06:53 WBC RBC Hgb Hct MCV MCH MCHC RDW Plt Count MPV Neut % (Auto) Lymph % (Auto) [place] % (Auto) Eos % (Auto) Baso % (Auto) Neut # (Auto) Lymph # (Auto) [place] # (Auto) Eos # (Auto) Baso # (Auto) Differential Comment Retic Count Haptoglobin PT INR APTT pO2 22 L VBG pH 7.37 VBG pCO2 56 VBG HCO3 27.5 VBG Total CO2 34.1 H VBG O2 Sat (Calc) 34.5 L VBG Base Excess 5.5 H VBG Potassium 2.8 L Sodium 148.0 Chloride 110.0 H Glucose 98 Lactate 4.9 H* Blood Gas Comments High lactate value Crit Value Called To genevieve High Crit Value Called By Kei ziegler Crit Value Read Back Y Blood Gas Notified Time 2022 Potassium Carbon Dioxide Anion Gap BUN Creatinine Est GFR ( Amer) Est GFR (Non-Af Amer) POC Glucose (mg/dL) Random Glucose Hemoglobin A1c Lactic Acid 2.8 H Calcium Phosphorus Magnesium Iron TIBC % Saturation Ferritin Total Bilirubin AST ALT Alkaline Phosphatase Total Protein Albumin Globulin Albumin/Globulin Ratio Prostate Specific Ag Vitamin B12 25-OH Vitamin D Total Folate Procalcitonin Free T4 TSH 3rd Generation Venous Blood Potassium 2.8 L Urine Color Urine Clarity Urine pH Ur Specific [place] Urine Protein Urine Glucose (UA) Urine Ketones Urine Blood Urine Nitrate Urine Bilirubin Urine Urobilinogen Ur Leukocyte Esterase Urine WBC (Auto) Urine RBC (Auto) Ur Squamous Epith Cells Urine Bacteria Hyaline Casts Stool Occult Blood Negative HIV 1&2 Antibody Screen 02/08/18 02/08/18 02/08/18 06:55 06:55 06:55 WBC 2.0 L* D RBC 2.94 L Hgb 10.0 L Hct 29.7 L MCV 101.2 H MCH 34.0 H MCHC 33.6 RDW 14.2 Plt Count 73 L MPV 9.1 Neut % (Auto) 60.0 Lymph % (Auto) 29.0 [place] % (Auto) 11.0 H Eos % (Auto) 0.0 Baso % (Auto) 0.0 Neut # (Auto) 1.2 L Lymph # (Auto) 0.6 L [place] # (Auto) 0.2 Eos # (Auto) 0.0 Baso # (Auto) 0.0 Differential Comment Retic Count Haptoglobin PT 16.8 H INR 1.5 APTT 36 H pO2 VBG pH VBG pCO2 VBG HCO3 VBG Total CO2 VBG O2 Sat (Calc) VBG Base Excess VBG Potassium Sodium 140 Chloride 102 Glucose Lactate Blood Gas Comments Crit Value Called To Crit Value Called By Crit Value Read Back Blood Gas Notified Time Potassium 4.1 Carbon Dioxide 31 H Anion Gap 11 BUN 50 H Creatinine 1.2 Est GFR ( Amer) > 60 Est GFR (Non-Af Amer) 57 POC Glucose (mg/dL) Random Glucose 126 H Hemoglobin A1c Lactic Acid Calcium 8.4 L Phosphorus 2.7 Magnesium 2.0 Iron TIBC % Saturation Ferritin Total Bilirubin 1.8 H AST 69 H D ALT 18 L Alkaline Phosphatase 77 Total Protein 6.9 Albumin 3.2 L Globulin 3.7 Albumin/Globulin Ratio 0.9 L Prostate Specific Ag Vitamin B12 25-OH Vitamin D Total Folate Procalcitonin Free T4 TSH 3rd Generation Venous Blood Potassium Urine Color Urine Clarity Urine pH Ur Specific [place] Urine Protein Urine Glucose (UA) Urine Ketones Urine Blood Urine Nitrate Urine Bilirubin Urine Urobilinogen Ur Leukocyte Esterase Urine WBC (Auto) Urine RBC (Auto) Ur Squamous Epith Cells Urine Bacteria Hyaline Casts Stool Occult Blood HIV 1&2 Antibody Screen 02/08/18 02/08/18 08:57 08:57 WBC RBC Hgb Hct MCV MCH MCHC RDW Plt Count MPV Neut % (Auto) Lymph % (Auto) [place] % (Auto) Eos % (Auto) Baso % (Auto) Neut # (Auto) Lymph # (Auto) [place] # (Auto) Eos # (Auto) Baso # (Auto) Differential Comment Retic Count Haptoglobin PT INR APTT pO2 VBG pH VBG pCO2 VBG HCO3 VBG Total CO2 VBG O2 Sat (Calc) VBG Base Excess VBG Potassium Sodium Chloride Glucose Lactate Blood Gas Comments Crit Value Called To Crit Value Called By Crit Value Read Back Blood Gas Notified Time Potassium Carbon Dioxide Anion Gap BUN Creatinine Est GFR ( Amer) Est GFR (Non-Af Amer) POC Glucose (mg/dL) Random Glucose Hemoglobin A1c Lactic Acid Calcium Phosphorus 2.3 L Magnesium Iron TIBC % Saturation Ferritin Total Bilirubin AST ALT Alkaline Phosphatase Total Protein Albumin Globulin Albumin/Globulin Ratio Prostate Specific Ag Vitamin B12 25-OH Vitamin D Total Folate Procalcitonin Free T4 TSH 3rd Generation Venous Blood Potassium Urine Color Urine Clarity Urine pH Ur Specific [place] Urine Protein Urine Glucose (UA) Urine Ketones Urine Blood Urine Nitrate Urine Bilirubin Urine Urobilinogen Ur Leukocyte Esterase Urine WBC (Auto) Urine RBC (Auto) Ur Squamous Epith Cells Urine Bacteria Hyaline Casts Stool Occult Blood HIV 1&2 Antibody Screen Negative Assessment & Plan (1) Pneumonia Status: Acute (2) Sepsis Status: Acute (3) Cachexia Status: Acute (4) Electrolyte imbalance Status: Acute (5) Failure to thrive Status: Acute (6) Neutropenia Status: Acute (7) Thrombocytopenia Status: Acute - Assessment and Plan (Free Text) Assessment: ;\[l,'LM: M>[id number]]l[ll; m,m;l,;./ severe sepsis, pneumonia and UTI
[2018-02-08] MEDS: Albuterol-Ipratrop 3 mg / 0.5 (3 ml) UD INH SCH ×3 (11:14→19:57)
[2018-02-08 11:25] LABS: NEUT % 86.5 % (50.0-75.0)
[2018-02-08 11:26] LABS: BASO % 0.7 % (0.0-2.0); EOS % 0.1 % (0.0-4.0); LYMPH # 0.1 K/uL (1.0-4.3); MONO % 1.7 % (0.0-10.0); NEUT # 1.1 K/uL (1.8-7.0); NRBC % 0.3 % (0.0-2.0)
--- NOTE | 2018-02-08 11:32 | CP.PCM.CON ---
History of Present Illness - History of Present Illness History of Present Illness: Palliative consult requested by Doctor Haley for goals of care discussion; failure to thrive Patient is a 88 yo male admitted from home with weakness and complains of abdominal pain. Per family, the patient already cachectic and weighting about 100 lb only, has lost more weight. CT head was negative acute findings. CT chest/abdomen was significant for severe emphysema and large bulla to RLL. Multiple nodules seen as well. There is concern about lung CA due to smoking tobacco. Patient's Platelet count is dropping and per Doctor Esther, Fibrogen is added to Tx to R/o DIC. lactate elevated at 4.9. BP 86/44. Patient diagnosed with sepsis. Zosyn and Zithromax IV on board. WBC 2.0, Hb 10.0, Platelts 73. PMH: Denied Soc. Hx: single, never , no children, lives alone, ambulates with cane, smokes cigarettes, Sinhala speaking only Fam. Hx: Has two brothers and one sister, all alive, patient's nephew Koby made surrogate decision maker per Living Will on chart Review of Systems - Constitutional Constitutional: Weight Loss, Weakness - EENT Eyes: absent: As Per HPI, Blind Spots, Blurred Vision, Change in Vision, Decreased Night Vision, Diplopia, Discharge, Dry Eye, Exophthalmos, Floaters, Irritation, Itchy Eyes, Loss of Peripheral Vision, Pain, Photophobia, Requires Corrective Lenses, Sees Flashes, Spots in Vision, Tunnel Vision, Other Visual Disturbances, Loss of Vision, Other Ears: absent: As Per HPI, Decreased Hearing, Ear Discharge, Ear Pain, Tinnitus, Abnormal Hearing, Disequilibrium, Dizziness, Other Nose/Mouth/Throat: absent: As Per HPI, Epistaxis, Nasal Congestion, Nasal Discharge, Nasal Obstruction, Nasal Trauma, Nose Pain, Post Nasal Drip, Sinus Pain, Sinus Pressure, Bleeding Gums, Change in Voice, Dental Pain, Dry Mouth, Dysphagia, Halitosis, Hoarsness, Lip Swelling, Mouth Lesions, Mouth Pain, Odynophagia, Sore Throat, Throat Swelling, Tongue Swelling, Facial Pain, Neck Pain, Neck Mass, Other - Cardiovascular Cardiovascular: absent: As Per HPI, Acrocyanosis, Chest Pain, Chest Pain at Rest , Chest Pain with Activity, Claudication, Diaphoresis, Dyspnea, Dyspnea on Exertion, Edema, Irregular Heart Rhythm, Pain Radiating to Arm/Neck/Jaw, Leg Edema, Leg Ulcers, Lightheadedness, Orthopnea, Palpitations, Paroxysmal Nocturnal Dyspnea, Pedal Edema, Radiating Pain, Rapid Heart Rate, Slow Heart Rate, Syncope, Other - Respiratory Respiratory: absent: As Per HPI, Cough, Dyspnea, Hemoptysis, Dyspnea on Exertion, Wheezing, Snoring, Stridor, Pain on Inspiration, Chest Congestion, Excessive Mucous Production, Change in Mucous Color, Pain with Coughing, Other - Gastrointestinal Gastrointestinal: Abdominal Pain - Genitourinary Genitourinary: absent: As Per HPI, Change in Urinary Stream, Difficulty Urinating, Dysuria, Flank Pain, Hematuria, Pyuria, Nocturia, Urinary Incontinen ce, Urinary Frequency, Urinary Hesitance, Urinary Urgency, Voiding Freq/Small Amts, Freq UTI, Hx Renal/Bladder Calculi, Hx /Renal Surgery, Bladder Distension, Other - Musculoskeletal Musculoskeletal: Abnormal Gait, Limited Range of Motion - Integumentary Integumentary: absent: As Per HPI, Acne, Alopecia, Bleeding Lesions, Change in Hair, Change in Nails, Change in Pigmentation, Changing Lesions, Dry Skin, Erythema, Furuncle, Hirsutism, Lesions, New Lesions, Non-Healing Lesions, Photosensitivity, Pruritus, Rash, Skin Pain, Skin Ulcer, Sores, Striae, Swelling, Unusual Bruising, Wounds, Jaundice, Other - Neurological Neurological: Abnormal Gait, Weakness - Psychiatric Psychiatric: absent: As Per HPI, Abnormal Sleep Pattern, Anhedonia, Anxiety, Auditory Hallucinations, Behavioral Changes, Change in Appetite, Change in Libido, Confusion, Depression, Difficulty Concentrating, Hallucinations, Homicidal Ideation, Hopelessness, Irritability, Memory Loss, Mood Swings, Panic Attacks, Paranoia, Suicidal Ideation, Visual Hallucinations, Tactile Hallucinations, Other - Endocrine Endocrine: absent: As Per HPI, Change in Body Appearance, Change in Libido, Cold Intolorance, Deepening of Voice, Excessive Sweating, Fatigue, Flushing, Heat Intolorance, Increase in Ring/Shoe/Hat Size, Palpitations, Polydipsia, Polyphagia, Polyuria, Other - Hematologic/Lymphatic Hematologic: Easy Bleeding Past Patient History - Past Medical History & Family History Past Medical History?: Yes - Past Social History Smoking Status: Never Smoked - CARDIAC Hx Cardiac Disorders: No - PULMONARY Hx Respiratory Disorders: No - NEUROLOGICAL Hx Neurological Disorder: No - HEENT Hx HEENT Problems: Yes Hx Cataracts: Yes Hx Deafness: Yes (colt.) Hx Macular Degeneration: Yes - RENAL Hx Chronic Kidney Disease: No - ENDOCRINE/METABOLIC Hx Endocrine Disorders: No - HEMATOLOGICAL/ONCOLOGICAL Hx Blood Disorders: No - INTEGUMENTARY Hx Dermatological Problems: No - MUSCULOSKELETAL/RHEUMATOLOGICAL Hx Musculoskeletal Disorders: Yes Hx Back Pain: Yes Hx Falls: No - GASTROINTESTINAL Hx Gastrointestinal Disorders: No - GENITOURINARY/GYNECOLOGICAL Hx Genitourinary Disorders: No - PSYCHIATRIC Hx Psychophysiologic Disorder: No Hx Substance Use: No - SURGICAL HISTORY Hx Surgeries: No - ANESTHESIA Hx Anesthesia: No Hx Anesthesia Reactions: No Hx Malignant Hyperthermia: No Has any member of the family had a problem w/ anesthesia?: No Meds Allergies/Adverse Reactions: Allergies Allergy/AdvReac Type Severity Reaction Status Date / Time No Known Allergies Allergy Verified 02/07/18 13:46 - Medications Medications: Current Medications Acetaminophen (Tylenol 650 Mg Supp) 650 mg MN Q4H PRN PRN Reason: Fever >100.4 F Last Admin: 02/08/18 01:09 Dose: 650 mg Albuterol/Ipratropium (Duoneb 3 Mg/0.5 Mg (3 Ml) Ud) 3 ml INH RQ4 OMERO Last Admin: 02/08/18 11:14 Dose: 3 ml Dextrose (Dextrose 50% Inj) 0 ml IVP .STAT PRN; Protocol PRN Reason: Hypoglycemia Protocol Dextrose (Glutose 15) 0 gm PO .ONCE PRN; Protocol PRN Reason: Hypoglycemia Protocol Dronabinol (Marinol) 2.5 mg PO BID OMERO Last Admin: 02/08/18 11:14 Dose: Not Given Ergocalciferol (Drisdol 50,000 Intl Units Cap) 1 cap PO Q7D OMERO Glucagon (Glucagen Diagnostic Kit) 0 mg IM .STAT PRN; Protocol PRN Reason: Hypoglycemia Protocol Piperacillin Sod/Tazobactam Sod (Zosyn 3.375 Gm Iv Premix) 3.375 gm in 50 mls @ 100 mls/hr IVPB Q6H OMERO; Protocol Last Admin: 02/08/18 11:04 Dose: 100 mls/hr Ferric Sodium Gluconate Complex 125 mg/ Sodium Chloride 110 mls @ 110 mls/hr IVPB DAILY OMERO Stop: 02/16/18 10:01 Azithromycin 500 mg/ Sodium (Chloride) 250 mls @ 250 mls/hr IVPB DAILY OMERO; Protocol Last Admin: 02/08/18 09:18 Dose: 250 mls/hr Dextrose/Sodium Chloride (Dextrose 5%/0.9% Ns 1000 Ml) 1,000 mls @ 150 mls/hr IV .Q6H40M OMERO Last Admin: 02/08/18 06:29 Dose: 150 mls/hr Dextrose (Dextrose 5% In Water 1000 Ml) 1,000 mls @ 0 mls/hr IV .Q0M PRN; P rotocol PRN Reason: Hypoglycemia Protocol Potassium Phosphate 15 mmole/ (Dextrose) 255 mls @ 42.5 mls/hr IVPB ONCE ONE Stop: 02/08/18 15:44 Last Admin: 02/08/18 11:06 Dose: 42.5 mls/hr Neomycin/Polymyxin/Bacitracin (Neosporin Triple Antibiotic Oint) 0 gm TOP BID PRN PRN Reason: Decubitus Ulcer Nicotine (Nicoderm Cq) 1 patch TD DAILY OMERO Last Admin: 02/08/18 11:06 Dose: 1 patch Pneumococcal Polyvalent Vaccine (Pneumovax 23 Vaccine) 0.5 ml IM .ONCE ONE Stop: 02/09/18 10:01 Tiotropium [place] (Spiriva) 18 mcg INH RQ24 OMERO Physical Exam - Constitutional Appears: Chronically Ill - Head Exam Head Exam: ATRAUMATIC, NORMAL INSPECTION, NORMOCEPHALIC - Eye Exam Eye Exam: EOMI, Normal appearance, PERRL Pupil Exam: NORMAL ACCOMODATION, PERRL - ENT Exam ENT Exam: Mucous Membranes Dry, Normal Exam - Neck Exam Neck exam: Positive for: Normal Inspection - Respiratory Exam Respiratory Exam: Decreased Breath Sounds, NORMAL BREATHING PATTERN - Cardiovascular Exam Cardiovascular Exam: Tachycardia, +S1, +S2 - GI/Abdominal Exam GI & Abdominal Exam: Hypoactive Bowel Sounds, Soft - Rectal Exam Rectal Exam: Deferred - Exam Additional comments: Yeh cath - Extremities Exam Extremities exam: Positive for: normal inspection - Back Exam Back exam: NORMAL INSPECTION - Neurological Exam Neurological exam: Alert, Oriented x3 - Psychiatric Exam Psychiatric exam: Normal Affect, Normal Mood - Skin Skin Exam: Dry, Intact, Pallor, Warm Results - Vital Signs Recent Vital Signs: Last Vital Signs Temp 97.6 F 02/08/18 08:00 Pulse 83 02/08/18 01:00 Resp 24 02/08/18 08:00 BP 86/44 L 02/08/18 08:00 Pulse Ox 100 02/08/18 08:00 - Labs Result Diagrams: 02/08/18 06:55 02/08/18 06:55 Labs: Laboratory Results - last 24 hr 02/07/18 02/07/18 02/07/18 09:35 09:37 09:39 WBC RBC Hgb Hct MCV MCH MCHC RDW Plt Count MPV Neut % (Auto) Lymph % (Auto) Jack % (Auto) Eos % (Auto) Baso % (Auto) Neut # (Auto) Lymph # (Auto) Jack # (Auto) Eos # (Auto) Baso # (Auto) Differential Comment Retic Count Haptoglobin PT INR APTT pO2 VBG pH VBG pCO2 VBG HCO3 VBG Total CO2 VBG O2 Sat (Calc) VBG Base Excess VBG Potassium Sodium Chloride Glucose Lactate Blood Gas Comments Crit Value Called To Crit Value Called By Crit Value Read Back Blood Gas Notified Time Potassium Carbon Dioxide Anion Gap BUN Creatinine Est GFR ( Amer) Est GFR (Non-Af Amer) POC Glucose (mg/dL) 60 L 22 L* 22 L* Random Glucose Hemoglobin A1c Lactic Acid Calcium Phosphorus Magnesium Iron TIBC % Saturation Ferritin Total Bilirubin AST ALT Alkaline Phosphatase Total Protein Albumin Globulin Albumin/Globulin Ratio Prostate Specific Ag Vitamin B12 25-OH Vitamin D Total Folate Procalcitonin Free T4 TSH 3rd Generation Venous Blood Potassium Urine Color Urine Clarity Urine pH Ur Specific [place] Urine Protein Urine Glucose (UA) Urine Ketones Urine Blood Urine Nitrate Urine Bilirubin Urine Urobilinogen Ur Leukocyte Esterase Urine WBC (Auto) Urine RBC (Auto) Ur Squamous Epith Cells Urine Bacteria Hyaline Casts Stool Occult Blood HIV 1&2 Antibody Screen 02/07/18 02/07/18 02/07/18 10:07 10:30 10:32 WBC 1.2 L* RBC 3.15 L Hgb 10.8 L D Hct 31.8 L MCV 101.2 H D MCH 34.2 H MCHC 33.8 RDW 14.2 Plt Count 73 L D MPV 11.3 Neut % (Auto) Lymph % (Auto) Jack % (Auto) Eos % (Auto) Baso % (Auto) Neut # (Auto) Lymph # (Auto) Jack # (Auto) Eos # (Auto) Baso # (Auto) Differential Comment Retic Count Haptoglobin PT INR APTT pO2 VBG pH VBG pCO2 VBG HCO3 VBG Total CO2 VBG O2 Sat (Calc) VBG Base Excess VBG Potassium Sodium Chloride Glucose Lactate Blood Gas Comments Crit Value Called To Crit Value Called By Crit Value Read Back Blood Gas Notified Time Potassium Carbon Dioxide Anion Gap BUN Creatinine Est GFR ( Amer) Est GFR (Non-Af Amer) POC Glucose (mg/dL) 30 L* 20 L* Random Glucose Hemoglobin A1c Lactic Acid Calcium Phosphorus Magnesium Iron TIBC % Saturation Ferritin Total Bilirubin AST ALT Alkaline Phosphatase Total Protein Albumin Globulin Albumin/Globulin Ratio Prostate Specific Ag Vitamin B12 25-OH Vitamin D Total Folate Procalcitonin Free T4 TSH 3rd Generation Venous Blood Potassium Urine Color Urine Clarity Urine pH Ur Specific [place] Urine Protein Urine Glucose (UA) Urine Ketones Urine Blood Urine Nitrate Urine Bilirubin Urine Urobilinogen Ur Leukocyte Esterase Urine WBC (Auto) Urine RBC (Auto) Ur Squamous Epith Cells Urine Bacteria Hyaline Casts Stool Occult Blood HIV 1&2 Antibody Screen 02/07/18 02/07/18 02/07/18 11:33 11:49 12:30 WBC RBC Hgb Hct MCV MCH MCHC RDW Plt Count MPV Neut % (Auto) Lymph % (Auto) Jack % (Auto) Eos % (Auto) Baso % (Auto) Neut # (Auto) Lymph # (Auto) Jack # (Auto) Eos # (Auto) Baso # (Auto) Differential Comment Retic Count Haptoglobin PT INR APTT pO2 VBG pH VBG pCO2 VBG HCO3 VBG Total CO2 VBG O2 Sat (Calc) VBG Base Excess VBG Potassium Sodium Chloride Glucose Lactate Blood Gas Comments Crit Value Called To Crit Value Called By Crit Value Read Back Blood Gas Notified Time Potassium Carbon Dioxide Anion Gap BUN Creatinine Est GFR ( Amer) Est GFR (Non-Af Amer) POC Glucose (mg/dL) 208 H 211 H Random Glucose Hemoglobin A1c Lactic Acid Calcium Phosphorus Magnesium Iron TIBC % Saturation Ferritin Total Bilirubin AST ALT Alkaline Phosphatase Total Protein Albumin Globulin Albumin/Globulin Ratio Prostate Specific Ag Vitamin B12 25-OH Vitamin D Total Folate Procalcitonin Free T4 TSH 3rd Generation Venous Blood Potassium Urine Color Yellow Urine Clarity Hazy Urine pH 5.0 Ur Specific [place] 1.021 Urine Protein 1+ H Urine Glucose (UA) 2+ H Urine Ketones 1+ H Urine Blood Trace-lysed Urine Nitrate Negative Urine Bilirubin Negative Urine Urobilinogen 4.0 Ur Leukocyte Esterase Neg Urine WBC (Auto) 1 Urine RBC (Auto) 2 Ur Squamous Epith Cells < 1 Urine Bacteria Rare Hyaline Casts 3-5 H Stool Occult Blood HIV 1&2 Antibody Screen 02/07/18 02/07/18 02/07/18 16:09 16:09 16:09 WBC RBC Hgb Hct MCV MCH MCHC RDW Plt Count MPV Neut % (Auto) Lymph % (Auto) Jack % (Auto) Eos % (Auto) Baso % (Auto) Neut # (Auto) Lymph # (Auto) Jack # (Auto) Eos # (Auto) Baso # (Auto) Differential Comment Retic Count 0.5 Haptoglobin PT INR APTT pO2 VBG pH VBG pCO2 VBG HCO3 VBG Total CO2 VBG O2 Sat (Calc) VBG Base Excess VBG Potassium Sodium Chloride Glucose Lactate Blood Gas Comments Crit Value Called To Crit Value Called By Crit Value Read Back Blood Gas Notified Time Potassium Carbon Dioxide Anion Gap BUN Creatinine Est GFR ( Amer) Est GFR (Non-Af Amer) POC Glucose (mg/dL) Random Glucose Hemoglobin A1c Lactic Acid Calcium Phosphorus 0.9 L* Magnesium 2.1 Iron < 10 L TIBC 181 L % Saturation 5.52 L Ferritin 456.0 Total Bilirubin AST ALT Alkaline Phosphatase Total Protein Albumin Globulin Albumin/Globulin Ratio Prostate Specific Ag 0.647 Vitamin B12 607 25-OH Vitamin D Total Folate 5.2 Procalcitonin Free T4 TSH 3rd Generation 1.10 Venous Blood Potassium Urine Color Urine Clarity Urine pH Ur Specific [place] Urine Protein Urine Glucose (UA) Urine Ketones Urine Blood Urine Nitrate Urine Bilirubin Urine Urobilinogen Ur Leukocyte Esterase Urine WBC (Auto) Urine RBC (Auto) Ur Squamous Epith Cells Urine Bacteria Hyaline Casts Stool Occult Blood HIV 1&2 Antibody Screen 02/07/18 02/07/18 02/07/18 16:09 16:09 16:09 WBC RBC Hgb Hct MCV MCH MCHC RDW Plt Count MPV Neut % (Auto) Lymph % (Auto) Jack % (Auto) Eos % (Auto) Baso % (Auto) Neut # (Auto) Lymph # (Auto) Jack # (Auto) Eos # (Auto) Baso # (Auto) Differential Comment Retic Count Haptoglobin 162.7 PT INR APTT pO2 VBG pH VBG pCO2 VBG HCO3 VBG Total CO2 VBG O2 Sat (Calc) VBG Base Excess VBG Potassium Sodium Chloride Glucose Lactate Blood Gas Comments Crit Value Called To Crit Value Called By Crit Value Read Back Blood Gas Notified Time Potassium Carbon Dioxide Anion Gap BUN Creatinine Est GFR ( Amer) Est GFR (Non-Af Amer) POC Glucose (mg/dL) Random Glucose Hemoglobin A1c 5.1 Lactic Acid Calcium Phosphorus Magnesium Iron TIBC % Saturation Ferritin Total Bilirubin AST ALT Alkaline Phosphatase Total Protein Albumin Globulin Albumin/Globulin Ratio Prostate Specific Ag Vitamin B12 25-OH Vitamin D Total < 12.8 L Folate Procalcitonin Free T4 0.89 TSH 3rd Generation Venous Blood Potassium Urine Color Urine Clarity Urine pH Ur Specific [place] Urine Protein Urine Glucose (UA) Urine Ketones Urine Blood Urine Nitrate Urine Bilirubin Urine Urobilinogen Ur Leukocyte Esterase Urine WBC (Auto) Urine RBC (Auto) Ur Squamous Epith Cells Urine Bacteria Hyaline Casts Stool Occult Blood HIV 1&2 Antibody Screen 02/07/18 02/07/18 02/07/18 16:40 20:04 20:04 WBC RBC Hgb Hct MCV MCH MCHC RDW Plt Count MPV Neut % (Auto) Lymph % (Auto) Jack % (Auto) Eos % (Auto) Baso % (Auto) Neut # (Auto) Lymph # (Auto) Jack # (Auto) Eos # (Auto) Baso # (Auto) Differential Comment Retic Count Haptoglobin PT INR APTT pO2 VBG pH VBG pCO2 VBG HCO3 VBG Total CO2 VBG O2 Sat (Calc) VBG Base Excess VBG Potassium Sodium Chloride Glucose Lactate Blood Gas Comments Crit Value Called To Crit Value Called By Crit Value Read Back Blood Gas Notified Time Potassium Carbon Dioxide Anion Gap BUN Creatinine Est GFR ( Amer) Est GFR (Non-Af Amer) POC Glucose (mg/dL) 125 H Random Glucose Hemoglobin A1c Lactic Acid Calcium Phosphorus 0.9 L* Magnesium Iron TIBC % Saturation Ferritin Total Bilirubin AST ALT Alkaline Phosphatase Total Protein Albumin Globulin Albumin/Globulin Ratio Prostate Specific Ag Vitamin B12 25-OH Vitamin D Total Folate Procalcitonin 17.41 H Free T4 TSH 3rd Generation Venous Blood Potassium Urine Color Urine Clarity Urine pH Ur Specific [place] Urine Protein Urine Glucose (UA) Urine Ketones Urine Blood Urine Nitrate Urine Bilirubin Urine Urobilinogen Ur Leukocyte Esterase Urine WBC (Auto) Urine RBC (Auto) Ur Squamous Epith Cells Urine Bacteria Hyaline Casts Stool Occult Blood HIV 1&2 Antibody Screen 02/07/18 02/08/18 02/08/18 20:10 00:45 06:53 WBC RBC Hgb Hct MCV MCH MCHC RDW Plt Count MPV Neut % (Auto) Lymph % (Auto) Jack % (Auto) Eos % (Auto) Baso % (Auto) Neut # (Auto) Lymph # (Auto) Jack # (Auto) Eos # (Auto) Baso # (Auto) Differential Comment Retic Count Haptoglobin PT INR APTT pO2 22 L VBG pH 7.37 VBG pCO2 56 VBG HCO3 27.5 VBG Total CO2 34.1 H VBG O2 Sat (Calc) 34.5 L VBG Base Excess 5.5 H VBG Potassium 2.8 L Sodium 148.0 Chloride 110.0 H Glucose 98 Lactate 4.9 H* Blood Gas Comments High lactate value Crit Value Called To genevieve High Crit Value Called By Kei ziegler Crit Value Read Back Y Blood Gas Notified Time 2022 Potassium Carbon Dioxide Anion Gap BUN Creatinine Est GFR ( Amer) Est GFR (Non-Af Amer) POC Glucose (mg/dL) Random Glucose Hemoglobin A1c Lactic Acid 2.8 H Calcium Phosphorus Magnesium Iron TIBC % Saturation Ferritin Total Bilirubin AST ALT Alkaline Phosphatase Total Protein Albumin Globulin Albumin/Globulin Ratio Prostate Specific Ag Vitamin B12 25-OH Vitamin D Total Folate Procalcitonin Free T4 TSH 3rd Generation Venous Blood Potassium 2.8 L Urine Color Urine Clarity Urine pH Ur Specific [place] Urine Protein Urine Glucose (UA) Urine Ketones Urine Blood Urine Nitrate Urine Bilirubin Urine Urobilinogen Ur Leukocyte Esterase Urine WBC (Auto) Urine RBC (Auto) Ur Squamous Epith Cells Urine Bacteria Hyaline Casts Stool Occult Blood Negative HIV 1&2 Antibody Screen 02/08/18 02/08/18 02/08/18 06:55 06:55 06:55 WBC 2.0 L* D RBC 2.94 L Hgb 10.0 L Hct 29.7 L MCV 101.2 H MCH 34.0 H MCHC 33.6 RDW 14.2 Plt Count 73 L MPV 9.1 Neut % (Auto) 60.0 Lymph % (Auto) 29.0 Jack % (Auto) 11.0 H Eos % (Auto) 0.0 Baso % (Auto) 0.0 Neut # (Auto) 1.2 L Lymph # (Auto) 0.6 L Jack # (Auto) 0.2 Eos # (Auto) 0.0 Baso # (Auto) 0.0 Differential Comment Retic Count Haptoglobin PT 16.8 H INR 1.5 APTT 36 H pO2 VBG pH VBG pCO2 VBG HCO3 VBG Total CO2 VBG O2 Sat (Calc) VBG Base Excess VBG Potassium Sodium 140 Chloride 102 Glucose Lactate Blood Gas Comments Crit Value Called To Crit Value Called By Crit Value Read Back Blood Gas Notified Time Potassium 4.1 Carbon Dioxide 31 H Anion Gap 11 BUN 50 H Creatinine 1.2 Est GFR ( Amer) > 60 Est GFR (Non-Af Amer) 57 POC Glucose (mg/dL) Random Glucose 126 H Hemoglobin A1c Lactic Acid Calcium 8.4 L Phosphorus 2.7 Magnesium 2.0 Iron TIBC % Saturation Ferritin Total Bilirubin 1.8 H AST 69 H D ALT 18 L Alkaline Phosphatase 77 Total Protein 6.9 Albumin 3.2 L Globulin 3.7 Albumin/Globulin Ratio 0.9 L Prostate Specific Ag Vitamin B12 25-OH Vitamin D Total Folate Procalcitonin Free T4 TSH 3rd Generation Venous Blood Potassium Urine Color Urine Clarity Urine pH Ur Specific [place] Urine Protein Urine Glucose (UA) Urine Ketones Urine Blood Urine Nitrate Urine Bilirubin Urine Urobilinogen Ur Leukocyte Esterase Urine WBC (Auto) Urine RBC (Auto) Ur Squamous Epith Cells Urine Bacteria Hyaline Casts Stool Occult Blood HIV 1&2 Antibody Screen 02/08/18 02/08/18 08:57 08:57 WBC RBC Hgb Hct MCV MCH MCHC RDW Plt Count MPV Neut % (Auto) Lymph % (Auto) Jack % (Auto) Eos % (Auto) Baso % (Auto) Neut # (Auto) Lymph # (Auto) Jack # (Auto) Eos # (Auto) Baso # (Auto) Differential Comment Retic Count Haptoglobin PT INR APTT pO2 VBG pH VBG pCO2 VBG HCO3 VBG Total CO2 VBG O2 Sat (Calc) VBG Base Excess VBG Potassium Sodium Chloride Glucose Lactate Blood Gas Comments Crit Value Called To Crit Value Called By Crit Value Read Back Blood Gas Notified Time Potassium Carbon Dioxide Anion Gap BUN Creatinine Est GFR ( Amer) Est GFR (Non-Af Amer) POC Glucose (mg/dL) Random Glucose Hemoglobin A1c Lactic Acid Calcium Phosphorus 2.3 L Magnesium Iron TIBC % Saturation Ferritin Total Bilirubin AST ALT Alkaline Phosphatase Total Protein Albumin Globulin Albumin/Globulin Ratio Prostate Specific Ag Vitamin B12 25-OH Vitamin D Total Folate Procalcitonin Free T4 TSH 3rd Generation Venous Blood Potassium Urine Color Urine Clarity Urine pH Ur Specific [place] Urine Protein Urine Glucose (UA) Urine Ketones Urine Blood Urine Nitrate Urine Bilirubin Urine Urobilinogen Ur Leukocyte Esterase Urine WBC (Auto) Urine RBC (Auto) Ur Squamous Epith Cells Urine Bacteria Hyaline Casts Stool Occult Blood HIV 1&2 Antibody Screen Negative Assessment & Plan - Assessment and Plan (Free Text) Assessment: Palliative consult DNR/DNI, Living Will on chart, PPS 10% I reviewed Medical records, all diagnostic studies, examined and interviewed patient in the bed Patient is alert, oriented X 3 with affect that is appropriate. Patient looks cachectic with wilder prominence very noticeable. Skin is pale and cool to touch. Patient denies feeling cold. Patient is Sinhala speaking only and his brother and sister in law at bed side translated for him. Breath sounds are diminished with regular breathing pattern. Denies shortness of breath. Patient has a barrel chest. Abdomen soft with active bowel sounds. Able to move upper and lower extremities, diminished active and passive ROM. Denies abdominal pain. Goals of care discussed with patient and family. I reviewed patient's clinical presentation and elicited their understanding. The sister in law stated concern about patient's safety at home and poor appetite. She feels patient is not able to continue living alone and family is unable to spend extra time with him. I questioned the patient if he would consider NH and LTC placement and he said " yes" if OK with his nephew Koby. I reviewed with patient and family the Living Will on chart calling for DNR/DNI. They all directed me to speak to Koby , the nephew, named as a surrogate decision maker on the Living Will. Further goals of care and Code status discussed with Koby, the nephew, over the phone in presence of patient and his family. Koby is aware of patient's chronic and irreversible condition and agrees that NH would be appropriate placement. His concern was lack of appropriate insurance ( medicaid) and I asked Viji IBARRA to talk to him about it. Further I offered more information about Hospice care at [place] if patient placed at LTC and suggested Nephew considers it as one of the options. he stated aknowledgement. Code status discussed. Mr. Whalen said that patient has made it very clear that he would not want his life prolonged by aggressive interventions and would want to be allowed natural , as was stated in the Living Will. Impression * Chonically ill male with suspicious of lung cancer and Leukemia * Weakness * Weight loss * Unsteady gait * Lack of family support * Living Will on chart indicates DNR/DNI * Family has concerns regarding the health Insurance in relation to placement at LTC * I do not feel that this patient is able to continue the same life style as of until this admission. He is way too weak to be left home alone, he needs significant assistance with ADLs Suggestions * Assist with ADLs * Bed rest to preserve energy * Offer food of choice * SW to assist family with planing for NH placement with possibility of LTC placement * DNR/DNI Palliative care will continue to fallow up with patient and his family and offer support. Advance care planing 46 min.
[2018-02-08] MEDS ORDERED: Sodium Chloride 0.9% 500 ML IV ONE ×2 (12:58→16:35)
[2018-02-08 13:16] LABS: FOLATE 5.7 ng/mL
[2018-02-08] MEDS: Ferric Sodium Gluconat Complex 125 MG in Sodium Chloride 0.9% 100 ML IVPB SCH (13:31)
[2018-02-08] MEDS: Sodium Chloride 0.9% 1,000 ML IV SCH ×3 (13:32→22:08)
[2018-02-08 15:49] LABS: LEGIONELLA AG URINE NEGATIVE (NEGATIVE)
[2018-02-08 16:28] LABS: MYCOPLASMA PNEUMONIAE IGM NEGATIVE (NEGATIVE); N MENINGITIS ACY/W135 NOT REQUIRED (NEGATIVE); N MENINGITIS B/ECOLI K1 NOT REQUIRED (NEGATIVE); STREP PNEUMONIAE NEGATIVE (NEGATIVE); STREPTOCOCCUS B NOT REQUIRED (NEGATIVE)
[2018-02-08] MEDS ORDERED: Albuterol-Ipratrop 3 mg / 0.5 (3 ml) UD INH STA (16:33)
--- NOTE | 2018-02-08 16:56 | RAD ---
Date of service: 02/08/2018 HISTORY: s/p NGT COMPARISON: February 07, 2018. FINDINGS: LUNGS: Marked progression of infiltrate primarily affecting the right lower lobe. Stable findings left lung. PLEURA: No significant interval change compared to the prior examination(s). CARDIOVASCULAR: Atherosclerotic calcifications identified primarily aortic arch. No radiographic findings to suggest acute or significant cardiovascular disease. OSSEOUS STRUCTURES: No significant abnormalities. VISUALIZED UPPER ABDOMEN: Normal. OTHER FINDINGS: Nasogastric tube courses through the esophagus into the stomach. The tip is not visualized. The distal side hole is below the gastroesophageal junction. IMPRESSION: Satisfactory position of recently placed nasogastric tube. Marked progression right lower lobe infiltrate.
[2018-02-08] MEDS: Albumin Human 25% (12.5 gm/50 ml) IV SCH ×2 (17:33→17:55)
[2018-02-08 18:57] LABS: SQUAMOUS EPITHIAL < 1 /hpf (0-5); URINE BACTERIA FEW (<OCC); URINE BILIRUBIN NEGATIVE (NEGATIVE); URINE BLOOD 3+ (NEGATIVE); URINE CLARITY Hazy (Clear); URINE GLUCOSE (UA) 1+ mg/dL (Normal); URINE LEUKOCYTE ESTERASE NEG Leu/uL (Negative); URINE PROTEIN 1+ mg/dL (NEGATIVE)
[2018-02-08 18:59] LABS: URINE COLOR YELLOW (YELLOW)
--- NOTE | 2018-02-08 22:40 | CP.PCM.CON ---
History of Present Illness - History of Present Illness History of Present Illness: 88 year old male with a history of former tobacco abuse, presenting with progressive fatigue and weightloss, found to haev pancytopenia and lung mass. The patient is currently on bipap and I am unable to obtain a history from the patient. He was found to be pancytopenic and concern for immature WBC's. He underwent CT of the chest/abdomen which revealed a spiculated RUL lesion. Past medical, surgical, family, social history cannot be obtained from the patient. Allergies: Per documentation NKA Review of systems cannot be obtained. Past Patient History - Past Medical History & Family History Past Medical History?: Yes - Past Social History Smoking Status: Never Smoked - CARDIAC Hx Cardiac Disorders: No - PULMONARY Hx Respiratory Disorders: No - NEUROLOGICAL Hx Neurological Disorder: No - HEENT Hx HEENT Problems: Yes Hx Cataracts: Yes Hx Deafness: Yes (colt.) Hx Macular Degeneration: Yes - RENAL Hx Chronic Kidney Disease: No - ENDOCRINE/METABOLIC Hx Endocrine Disorders: No - HEMATOLOGICAL/ONCOLOGICAL Hx Blood Disorders: No - INTEGUMENTARY Hx Dermatological Problems: No - MUSCULOSKELETAL/RHEUMATOLOGICAL Hx Musculoskeletal Disorders: Yes Hx Back Pain: Yes Hx Falls: No - GASTROINTESTINAL Hx Gastrointestinal Disorders: No - GENITOURINARY/GYNECOLOGICAL Hx Genitourinary Disorders: No - PSYCHIATRIC Hx Psychophysiologic Disorder: No Hx Substance Use: No - SURGICAL HISTORY Hx Surgeries: No - ANESTHESIA Hx Anesthesia: No Hx Anesthesia Reactions: No Hx Malignant Hyperthermia: No Has any member of the family had a problem w/ anesthesia?: No Meds Allergies/Adverse Reactions: Allergies Allergy/AdvReac Type Severity Reaction Status Date / Time No Known Allergies Allergy Verified 02/07/18 13:46 - Medications Medications: Current Medications Acetaminophen (Tylenol 650 Mg Supp) 650 mg [place] Q4H PRN PRN Reason: Fever >100.4 F Last Admin: 02/08/18 01:09 Dose: 650 mg Albuterol/Ipratropium (Duoneb 3 Mg/0.5 Mg (3 Ml) Ud) 3 ml INH RQ4 [facility] Last Admin: 02/08/18 19:57 Dose: 3 ml Dextrose (Dextrose 50% Inj) 0 ml IVP .STAT PRN; Protocol PRN Reason: Hypoglycemia Protocol Last Admin: 02/08/18 17:47 Dose: 50 ml Dextrose (Glutose 15) 0 gm PO .ONCE PRN; Protocol PRN Reason: Hypoglycemia Protocol Dronabinol (Marinol) 2.5 mg PO BID [facility] Last Admin: 02/08/18 17:33 Dose: Not Given Ergocalciferol (Drisdol 50,000 Intl Units Cap) 1 cap PO Q7D [facility] Last Admin: 02/08/18 12:30 Dose: Not Given Glucagon (Glucagen Diagnostic Kit) 0 mg IM .STAT PRN; Protocol PRN Reason: Hypoglycemia Protocol Piperacillin Sod/Tazobactam Sod (Zosyn 3.375 Gm Iv Premix) 3.375 gm in 50 mls @ 100 mls/hr IVPB Q6H [facility]; Protocol Last Admin: 02/08/18 17:55 Dose: 100 mls/hr Ferric Sodium Gluconate Complex 125 mg/ Sodium Chloride 110 mls @ 110 mls/hr IVPB DAILY [facility] Stop: 02/16/18 10:01 Last Admin: 02/08/18 13:31 Dose: 110 mls/hr Azithromycin 500 mg/ Sodium (Chloride) 250 mls @ 250 mls/hr IVPB DAILY [facility]; Protocol Last Admin: 02/08/18 09:18 Dose: 250 mls/hr Dextrose (Dextrose 5% In Water 1000 Ml) 1,000 mls @ 0 mls/hr IV .Q0M PRN; Protocol PRN Reason: Hypoglycemia Protocol Sodium Chloride (Sodium Chloride 0.9%) 1,000 mls @ 200 mls/hr IV .Q5H [facility] Last Admin: 02/08/18 22:08 Dose: 200 mls/hr Neomycin/Polymyxin/Bacitracin (Neosporin Triple Antibiotic Oint) 0 gm TOP BID PRN PRN Reason: Decubitus Ulcer Nicotine (Nicoderm Cq) 1 patch TD DAILY [facility] Last Admin: 02/08/18 11:06 Dose: 1 patch Pneumococcal Polyvalent Vaccine (Pneumovax 23 Vaccine) 0.5 ml IM .ONCE ONE Stop: 02/09/18 10:01 Tiotropium [place] (Spiriva) 18 mcg INH RQ24 [facility] Physical Exam - Constitutional Appears: Cachectic - Head Exam Head Exam: ATRAUMATIC - ENT Exam ENT Exam: Mucous Membranes Dry - Respiratory Exam Respiratory Exam: Respiratory Distress - Cardiovascular Exam Cardiovascular Exam: +S1, +S2 - GI/Abdominal Exam GI & Abdominal Exam: Normal Bowel Sounds - Neurological Exam Neurological exam: Altered - Psychiatric Exam Psychiatric exam: Anxious - Skin Skin Exam: Warm Results - Vital Signs Recent Vital Signs: Last Vital Signs Temp 97.6 F 02/08/18 16:00 Pulse 90 02/08/18 21:53 Resp 24 02/08/18 08:00 BP 86/44 L 02/08/18 08:00 Pulse Ox 100 02/08/18 08:00 - Labs Result Diagrams: 02/08/18 06:55 02/08/18 06:55 Labs: Laboratory Results - last 24 hr 02/07/18 02/07/18 02/07/18 09:35 09:37 09:39 WBC RBC Hgb Hct MCV MCH MCHC RDW Plt Count MPV Neut % (Auto) Lymph % (Auto) Dyer % (Auto) Eos % (Auto) Baso % (Auto) Neut # (Auto) Lymph # (Auto) Dyer # (Auto) Eos # (Auto) Baso # (Auto) Differential Comment Smear Path Review PT INR APTT Sodium Potassium Chloride Carbon Dioxide Anion Gap BUN Creatinine Est GFR ( Amer) Est GFR (Non-Af Amer) POC Glucose (mg/dL) 60 L 22 L* 22 L* Random Glucose Lactic Acid Calcium Phosphorus Magnesium Total Bilirubin AST ALT Alkaline Phosphatase Total Protein Albumin Globulin Albumin/Globulin Ratio Vitamin B12 Folate Urine Color Urine Clarity Urine pH Ur Specific Schroeder Urine Protein Urine Glucose (UA) Urine Ketones Urine Blood Urine Nitrate Urine Bilirubin Urine Urobilinogen Ur Leukocyte Esterase Urine WBC (Auto) Urine RBC (Auto) Ur Squamous Epith Cells Urine Bacteria Stool Occult Blood HIV 1&2 Antibody Screen H.influenzae Type B Ag Ur L.pneumophila Ag Mycoplasma pneumon IgM N.meningitidis ACY/W135 N.meningi B/E.coli K1 Ag Group B Strep Antigen S. pneumoniae Antigen 02/07/18 02/07/18 02/07/18 10:07 10:30 10:32 WBC RBC Hgb Hct MCV MCH MCHC RDW Plt Count MPV Neut % (Auto) 86.5 H Lymph % (Auto) 11.0 L Dyer % (Auto) 1.7 Eos % (Auto) 0.1 Baso % (Auto) 0.7 Neut # (Auto) 1.1 L Lymph # (Auto) 0.1 L Dyer # (Auto) 0.0 Eos # (Auto) 0.0 Baso # (Auto) 0.0 Differential Comment Smear Path Review PT INR APTT Sodium Potassium Chloride Carbon Dioxide Anion Gap BUN Creatinine Est GFR ( Amer) Est GFR (Non-Af Amer) POC Glucose (mg/dL) 30 L* 20 L* Random Glucose Lactic Acid Calcium Phosphorus Magnesium Total Bilirubin AST ALT Alkaline Phosphatase Total Protein Albumin Globulin Albumin/Globulin Ratio Vitamin B12 Folate Urine Color Urine Clarity Urine pH Ur Specific [place] Urine Protein Urine Glucose (UA) Urine Ketones Urine Blood Urine Nitrate Urine Bilirubin Urine Urobilinogen Ur Leukocyte Esterase Urine WBC (Auto) Urine RBC (Auto) Ur Squamous Epith Cells Urine Bacteria Stool Occult Blood HIV 1&2 Antibody Screen H.influenzae Type B Ag Ur L.pneumophila Ag Mycoplasma pneumon IgM N.meningitidis ACY/W135 N.meningi B/E.coli K1 Ag Group B Strep Antigen S. pneumoniae Antigen 02/07/18 02/07/18 02/07/18 11:49 12:30 16:40 WBC RBC Hgb Hct MCV MCH MCHC RDW Plt Count MPV Neut % (Auto) Lymph % (Auto) Dyer % (Auto) Eos % (Auto) Baso % (Auto) Neut # (Auto) Lymph # (Auto) Dyer # (Auto) Eos # (Auto) Baso # (Auto) Differential Comment Smear Path Review PT INR APTT Sodium Potassium Chloride Carbon Dioxide Anion Gap BUN Creatinine Est GFR ( Amer) Est GFR (Non-Af Amer) POC Glucose (mg/dL) 208 H 211 H 125 H Random Glucose Lactic Acid Calcium Phosphorus Magnesium Total Bilirubin AST ALT Alkaline Phosphatase Total Protein Albumin Globulin Albumin/Globulin Ratio Vitamin B12 Folate Urine Color Urine Clarity Urine pH Ur Specific [place] Urine Protein Urine Glucose (UA) Urine Ketones Urine Blood Urine Nitrate Urine Bilirubin Urine Urobilinogen Ur Leukocyte Esterase Urine WBC (Auto) Urine RBC (Auto) Ur Squamous Epith Cells Urine Bacteria Stool Occult Blood HIV 1&2 Antibody Screen H.influenzae Type B Ag Ur L.pneumophila Ag Mycoplasma pneumon IgM N.meningitidis ACY/W135 N.meningi B/E.coli K1 Ag Group B Strep Antigen S. pneumoniae Antigen 02/08/18 02/08/18 02/08/18 00:45 06:53 06:55 WBC 2.0 L* D RBC 2.94 L Hgb 10.0 L Hct 29.7 L MCV 101.2 H MCH 34.0 H MCHC 33.6 RDW 14.2 Plt Count 73 L MPV 9.1 Neut % (Auto) 60.0 Lymph % (Auto) 29.0 Dyer % (Auto) 11.0 H Eos % (Auto) 0.0 Baso % (Auto) 0.0 Neut # (Auto) 1.2 L Lymph # (Auto) 0.6 L Dyer # (Auto) 0.2 Eos # (Auto) 0.0 Baso # (Auto) 0.0 Differential Comment Smear Path Review PT INR APTT Sodium Potassium Chloride Carbon Dioxide Anion Gap BUN Creatinine Est GFR ( Amer) Est GFR (Non-Af Amer) POC Glucose (mg/dL) Random Glucose Lactic Acid 2.8 H Calcium Phosphorus Magnesium Total Bilirubin AST ALT Alkaline Phosphatase Total Protein Albumin Globulin Albumin/Globulin Ratio Vitamin B12 Folate Urine Color Urine Clarity Urine pH Ur Specific [place] Urine Protein Urine Glucose (UA) Urine Ketones Urine Blood Urine Nitrate Urine Bilirubin Urine Urobilinogen Ur Leukocyte Esterase Urine WBC (Auto) Urine RBC (Auto) Ur Squamous Epith Cells Urine Bacteria Stool Occult Blood Negative HIV 1&2 Antibody Screen H.influenzae Type B Ag Ur L.pneumophila Ag Mycoplasma pneumon IgM N.meningitidis ACY/W135 N.meningi B/E.coli K1 Ag Group B Strep Antigen S. pneumoniae Antigen 02/08/18 02/08/18 02/08/18 06:55 06:55 08:57 WBC RBC Hgb Hct MCV MCH MCHC RDW Plt Count MPV Neut % (Auto) Lymph % (Auto) Dyer % (Auto) Eos % (Auto) Baso % (Auto) Neut # (Auto) Lymph # (Auto) Dyer # (Auto) Eos # (Auto) Baso # (Auto) Differential Comment Smear Path Review PT 16.8 H INR 1.5 APTT 36 H Sodium 140 Potassium 4.1 Chloride 102 Carbon Dioxide 31 H Anion Gap 11 BUN 50 H Creatinine 1.2 Est GFR ( Amer) > 60 Est GFR (Non-Af Amer) 57 POC Glucose (mg/dL) Random Glucose 126 H Lactic Acid Calcium 8.4 L Phosphorus 2.7 2.3 L Magnesium 2.0 Total Bilirubin 1.8 H AST 69 H D ALT 18 L Alkaline Phosphatase 77 Total Protein 6.9 Albumin 3.2 L Globulin 3.7 Albumin/Globulin Ratio 0.9 L Vitamin B12 Folate Urine Color Urine Clarity Urine pH Ur Specific [place] Urine Protein Urine Glucose (UA) Urine Ketones Urine Blood Urine Nitrate Urine Bilirubin Urine Urobilinogen Ur Leukocyte Esterase Urine WBC (Auto) Urine RBC (Auto) Ur Squamous Epith Cells Urine Bacteria Stool Occult Blood HIV 1&2 Antibody Screen H.influenzae Type B Ag Ur L.pneumophila Ag Mycoplasma pneumon IgM N.meningitidis ACY/W135 N.meningi B/E.coli K1 Ag Group B Strep Antigen S. pneumoniae Antigen 02/08/18 02/08/18 02/08/18 08:57 11:39 11:50 WBC RBC Hgb Hct MCV MCH MCHC RDW Plt Count MPV Neut % (Auto) Lymph % (Auto) Dyer % (Auto) Eos % (Auto) Baso % (Auto) Neut # (Auto) Lymph # (Auto) Dyer # (Auto) Eos # (Auto) Baso # (Auto) Differential Comment Smear Path Review PT INR APTT Sodium Potassium Chloride Carbon Dioxide Anion Gap BUN Creatinine Est GFR ( Amer) Est GFR (Non-Af Amer) POC Glucose (mg/dL) 255 H Random Glucose Lactic Acid Calcium Phosphorus Magnesium Total Bilirubin AST ALT Alkaline Phosphatase Total Protein Albumin Globulin Albumin/Globulin Ratio Vitamin B12 627 Folate 5.7 Urine Color Urine Clarity Urine pH Ur Specific [place] Urine Protein Urine Glucose (UA) Urine Ketones Urine Blood Urine Nitrate Urine Bilirubin Urine Urobilinogen Ur Leukocyte Esterase Urine WBC (Auto) Urine RBC (Auto) Ur Squamous Epith Cells Urine Bacteria Stool Occult Blood HIV 1&2 Antibody Screen Negative H.influenzae Type B Ag Ur L.pneumophila Ag Mycoplasma pneumon IgM N.meningitidis ACY/W135 N.meningi B/E.coli K1 Ag Group B Strep Antigen S. pneumoniae Antigen 02/08/18 02/08/18 02/08/18 14:49 17:41 18:42 WBC RBC Hgb Hct MCV MCH MCHC RDW Plt Count MPV Neut % (Auto) Lymph % (Auto) Dyer % (Auto) Eos % (Auto) Baso % (Auto) Neut # (Auto) Lymph # (Auto) Dyer # (Auto) Eos # (Auto) Baso # (Auto) Differential Comment Smear Path Review PT INR APTT Sodium Potassium Chloride Carbon Dioxide Anion Gap BUN Creatinine Est GFR ( Amer) Est GFR (Non-Af Amer) POC Glucose (mg/dL) 55 L Random Glucose Lactic Acid Calcium Phosphorus Magnesium Total Bilirubin AST ALT Alkaline Phosphatase Total Protein Albumin Globulin Albumin/Globulin Ratio Vitamin B12 Folate Urine Color Yellow Urine Clarity Hazy Urine pH 5.0 Ur Specific Schroeder 1.026 Urine Protein 1+ H Urine Glucose (UA) 1+ H Urine Ketones Negative Urine Blood 3+ H Urine Nitrate Negative Urine Bilirubin Negative Urine Urobilinogen 2.0 Ur Leukocyte Esterase Neg Urine WBC (Auto) 5 Urine RBC (Auto) 6 H Ur Squamous Epith Cells < 1 Urine Bacteria Few H Stool Occult Blood HIV 1&2 Antibody Screen H.influenzae Type B Ag Not required Ur L.pneumophila Ag Negative Mycoplasma pneumon IgM Negative N.meningitidis ACY/W135 Not required N.meningi B/E.coli K1 Ag Not required Group B Strep Antigen Not required S. pneumoniae Antigen Negative Assessment & Plan - Assessment and Plan (Free Text) Assessment: 1. Pancytopenia - flow cytometery sent on peripheral blood - bone marrow evaluation if more clinically stable - retic count, b12, folate, ferritin 2. Spiculated lung mass - suspicious for primary lung cancer - DNR DNI Thank you for this interesting consult.
[2018-02-09] MEDS: Albuterol-Ipratrop 3 mg / 0.5 (3 ml) UD INH SCH ×3 (03:16→07:58)
[2018-02-09] MEDS: Sodium Chloride 0.9% 1,000 ML IV SCH ×2 (03:21→09:42)
[2018-02-09 05:35] LABS: HEMOGLOBIN 9.1 g/dL (12.0-18.0); MEAN CORPUSCULAR HEMOGLOBIN 34.3 pg (27.0-31.0); MEAN CORPUSCULAR HGB CONC 33.3 g/dL (33.0-37.0); MEAN PLATELET VOLUME 10.5 fL (7.2-11.7); RBC 2.66 Mil/uL (4.40-5.90); RED CELL DISTRIBUTION WIDTH 14.7 % (11.5-14.5); WHITE BLOOD COUNT 3.8 K/uL (4.8-10.8)
[2018-02-09 05:36] LABS: ALB/GLOB RATIO 0.9 (1.0-2.1); ALBUMIN 2.8 g/dL (3.5-5.0); CALCIUM 7.4 mg/dl (8.6-10.4)
[2018-02-09] MEDS: Piperacill/Tazo 3.375gm in Dex 3.375 GM/50 ML BAG IVPB SCH (06:45)
--- NOTE | 2018-02-09 07:36 | CP.PCM.PN ---
Subjective - Date & Time of Evaluation Date of Evaluation: 02/09/18 Time of Evaluation: 07:36 Objective - Vital Signs/Intake and Output Vital Signs (last 24 hours): Temp Pulse Resp BP Pulse Ox 97.9 F 96 H 30 H 111/26 L 100 02/09/18 02:24 02/09/18 06:16 02/09/18 00:00 02/09/18 00:00 02/09/18 00:00 Intake and Output: 02/09/18 02/09/18 06:59 18:59 Intake Total 1540 Output Total 110 Balance 1430 - Medications Medications: Current Medications Acetaminophen (Tylenol 650 Mg Supp) 650 mg [place] Q4H PRN PRN Reason: Fever >100.4 F Last Admin: 02/09/18 01:24 Dose: 650 mg Albuterol/Ipratropium (Duoneb 3 Mg/0.5 Mg (3 Ml) Ud) 3 ml INH RQ4 [facility] Last Admin: 02/09/18 03:17 Dose: 3 ml Dextrose (Dextrose 50% Inj) 0 ml IVP .STAT PRN; Protocol PRN Reason: Hypoglycemia Protocol Last Admin: 02/08/18 17:47 Dose: 50 ml Dextrose (Glutose 15) 0 gm PO .ONCE PRN; Protocol PRN Reason: Hypoglycemia Protocol Dronabinol (Marinol) 2.5 mg PO BID [facility] Last Admin: 02/08/18 17:33 Dose: Not Given Ergocalciferol (Drisdol 50,000 Intl Units Cap) 1 cap PO Q7D [facility] Last Admin: 02/08/18 12:30 Dose: Not Given Glucagon (Glucagen Diagnostic Kit) 0 mg IM .STAT PRN; Protocol PRN Reason: Hypoglycemia Protocol Piperacillin Sod/Tazobactam Sod (Zosyn 3.375 Gm Iv Premix) 3.375 gm in 50 mls @ 100 mls/hr IVPB Q6H [facility]; Protocol Last Admin: 02/09/18 06:45 Dose: 100 mls/hr Ferric Sodium Gluconate Complex 125 mg/ Sodium Chloride 110 mls @ 110 mls/hr IVPB DAILY [facility] Stop: 02/16/18 10:01 Last Admin: 02/08/18 13:31 Dose: 110 mls/hr Azithromycin 500 mg/ Sodium (Chloride) 250 mls @ 250 mls/hr IVPB DAILY [facility]; Protocol Last Admin: 02/08/18 09:18 Dose: 250 mls/hr Dextrose (Dextrose 5% In Water 1000 Ml) 1,000 mls @ 0 mls/hr IV .Q0M PRN; Protocol PRN Reason: Hypoglycemia Protocol Sodium Chloride (Sodium Chloride 0.9%) 1,000 mls @ 200 mls/hr IV .Q5H [facility] Last Admin: 02/09/18 03:21 Dose: 200 mls/hr Potassium Chloride (Potassium Chloride 20 Meq/100 Ml) 20 meq in 100 mls @ 50 mls/hr IVPB BID ONE Stop: 02/09/18 09:26 Neomycin/Polymyxin/Bacitracin (Neosporin Triple Antibiotic Oint) 0 gm TOP BID PRN PRN Reason: Decubitus Ulcer Nicotine (Nicoderm Cq) 1 patch TD DAILY [facility] Last Admin: 02/08/18 11:06 Dose: 1 patch Pneumococcal Polyvalent Vaccine (Pneumovax 23 Vaccine) 0.5 ml IM .ONCE ONE Stop: 02/09/18 10:01 Tiotropium [place] (Spiriva) 18 mcg INH RQ24 [facility] - Labs Labs: 02/09/18 05:03 02/09/18 05:03 PT 16.8 SECONDS (9.7-12.2) H 02/08/18 06:55 INR 1.5 02/08/18 06:55 APTT 36 SECONDS (21-34) H 02/08/18 06:55
[2018-02-09] MEDS ORDERED: Tiotropium 18 mcg Cap For Inhalation INH SCH (08:00)
[2018-02-09 08:51] LABS: LYMPH # 0.6 K/uL (1.0-4.3); MONO # 0.5 K/uL (0.0-0.8); NEUT # 2.7 K/uL (1.8-7.0)
[2018-02-09] MEDS: Azithromycin 500 MG in Sodium Chloride 0.9% 250 ML IVPB SCH (09:42)
[2018-02-09] MEDS: Ferric Sodium Gluconat Complex 125 MG in Sodium Chloride 0.9% 100 ML IVPB SCH (09:59)
[2018-02-09] MEDS ORDERED: Pneumococcal 23-Valent Vaccine IM ONE (10:00)
[2018-02-09 10:12] VITALS: TEMP 97.6; O2SAT 85
[2018-02-09 10:17] VITALS: BP 72/30; PULSE 57; RESP 25
--- NOTE | 2018-02-09 11:16 | CP.PCM.PRO ---
<Jerad Short - Last Filed: 02/09/18 13:27> Pronouncement of Note - Clinical Findings Physical Exam: No Response Verbal/Painful Stimuli, Absent Peripheral Pulses{Carotid & Femoral}, Absent Heart & Breath Sounds, No Pupillary Light Reflex, No Corneal Reflex, Pupils Fixed & Dilated, Absence of Vital Signs - Pronouncement Time Time of Pronouncement of : 10:56 - Notifications Pronouncement Notifications: [place] Notified - [place] [id number] Additional Comments: Attempted to call PMD Dr. Ruddy Olson a few times but no answer. <Eduardo Marsahll - Last Filed: 02/09/18 16:51> Attending/Attestation - Attestation I have personally seen and examined this patient.: Yes I have fully participated in the care of the patient.: Yes I have reviewed all pertinent clinical information: Yes Notes (Text): 02/09/18 16:51 Medical Hospitalist: Patient as documented above. The [place] EDRS was filled out and case number as reported above Eduardo Marshall
--- NOTE | 2018-02-09 13:50 | CP.PCM.DIS ---
<Jerad Short - Last Filed: 02/09/18 14:52> Provider - Provider Date of Admission: 02/07/18 13:35 Attending physician: Eduardo Marshall DO Time Spent in preparation of Discharge (in minutes): 45 Diagnosis - Discharge Diagnosis (1) Sepsis Status: Acute (2) Abnormal finding on urinalysis Status: Acute (3) Anemia Status: Acute (4) Cachexia Status: Chronic (5) Electrolyte imbalance Status: Acute (6) Failure to thrive Status: Acute (7) Neutropenia Status: Chronic (8) Pneumonia Status: Acute (9) Thrombocytopenia Status: Chronic Hospital Course - Lab Results Lab Results: Micro Results 02/07/18 10:30 Blood Blood Culture - Preliminary NO GROWTH AFTER 48 HOURS 02/07/18 12:10 Blood Blood Culture - Preliminary NO GROWTH AFTER 48 HOURS 02/07/18 11:33 Urine Urine Culture - Final Proteus Mirabilis Beta Hemolytic Strep Group B 02/07/18 22:05 Nose MRSA Culture (Admit) - Final MRSA NOT DETECTED Most Recent Lab Values WBC 3.8 K/uL (4.8-10.8) L D 02/09/18 05:03 RBC 2.66 Mil/uL (4.40-5.90) L 02/09/18 05:03 Hgb 9.1 g/dL (12.0-18.0) L 02/09/18 05:03 Hct 27.4 % (35.0-51.0) L 02/09/18 05:03 MCV 103.0 fL (80.0-94.0) H 02/09/18 05:03 MCH 34.3 pg (27.0-31.0) H 02/09/18 05:03 MCHC 33.3 g/dL (33.0-37.0) 02/09/18 05:03 RDW 14.7 % (11.5-14.5) H 02/09/18 05:03 Plt Count 76 K/uL (130-400) L 02/09/18 05:03 MPV 10.5 fL (7.2-11.7) 02/09/18 05:03 Neut % (Auto) 71.0 % (50.0-75.0) 02/09/18 05:03 Lymph % (Auto) 15.0 % (20.0-40.0) L 02/09/18 05:03 Ralls % (Auto) 14.0 % (0.0-10.0) H 02/09/18 05:03 Eos % (Auto) 0.0 % (0.0-4.0) 02/09/18 05:03 Baso % (Auto) 0.0 % (0.0-2.0) 02/09/18 05:03 Neut # (Auto) 2.7 K/uL (1.8-7.0) 02/09/18 05:03 Lymph # (Auto) 0.6 K/uL (1.0-4.3) L 02/09/18 05:03 Ralls # (Auto) 0.5 K/uL (0.0-0.8) 02/09/18 05:03 Eos # (Auto) 0.0 K/uL (0.0-0.7) 02/09/18 05:03 Baso # (Auto) 0.0 K/uL (0.0-0.2) 02/09/18 05:03 Differential Comment 02/08/18 06:55 Smear Path Review 02/07/18 10:07 Retic Count 0.5 % (0.5-1.5) 02/07/18 16:09 Haptoglobin 162.7 mg/dL (30.0-200.0) 02/07/18 16:09 PT 16.8 SECONDS (9.7-12.2) H 02/08/18 06:55 INR 1.5 02/08/18 06:55 APTT 36 SECONDS (21-34) H 02/08/18 06:55 pO2 22 mm/Hg (30-55) L 02/07/18 20:10 VBG pH 7.37 (7.32-7.43) 02/07/18 20:10 VBG pCO2 56 mmHg (40-60) 02/07/18 20:10 VBG HCO3 27.5 mmol/L 02/07/18 20:10 VBG Total CO2 34.1 mmol/L (22-28) H 02/07/18 20:10 VBG O2 Sat (Calc) 34.5 % (40-65) L 02/07/18 20:10 VBG Base Excess 5.5 mmol/L (0.0-2.0) H 02/07/18 20:10 VBG Potassium 2.8 mmol/L (3.6-5.2) L 02/07/18 20:10 Sodium 148.0 mmol/l (132-148) 02/07/18 20:10 Chloride 110.0 mmol/L (98-107) H 02/07/18 20:10 Glucose 98 mg/dl (75-110) 02/07/18 20:10 Lactate 4.9 mmol/L (0.7-2.1) H* 02/07/18 20:10 FiO2 21.0 % 02/07/18 10:08 Blood Gas Comments High lactate value 02/07/18 20:10 Crit Value Called To genevieve High 02/07/18 20:10 Crit Value Called By Kei ziegler 02/07/18 20:10 Crit Value Read Back Y 02/07/18 20:10 Blood Gas Notified Time 202202/07/18 20:10 Sodium 146 mmol/L (132-148) 02/09/18 05:03 Potassium 3.3 mmol/L (3.6-5.2) L 02/09/18 05:03 Chloride 110 mmol/L (98-107) H 02/09/18 05:03 Carbon Dioxide 25 mmol/L (22-30) 02/09/18 05:03 Anion Gap 14 (10-20) 02/09/18 05:03 BUN 41 mg/dL (9-20) H 02/09/18 05:03 Creatinine 1.6 mg/dL (0.8-1.5) H 02/09/18 05:03 Est GFR ( Amer) 50 02/09/18 05:03 Est GFR (Non-Af Amer) 41 02/09/18 05:03 POC Glucose (mg/dL) 85 mg/dL (65-110) 02/09/18 07:12 Random Glucose 107 mg/dL (75-110) 02/09/18 05:03 Hemoglobin A1c 5.1 % (4.2-6.5) 02/07/18 16:09 Lactic Acid 2.8 mmol/L (0.7-2.1) H 02/08/18 00:45 Calcium 7.4 mg/dl (8.6-10.4) L 02/09/18 05:03 Phosphorus 2.3 mg/dL (2.5-4.5) L 02/08/18 08:57 Magnesium 2.0 mg/dL (1.6-2.3) 02/08/18 06:55 Iron < 10 ug/dL (49-181) L 02/07/18 16:09 TIBC 181 ug/dL (250-450) L 02/07/18 16:09 % Saturation 5.52 (20-55) L 02/07/18 16:09 Ferritin 456.0 ng/mL 02/07/18 16:09 Total Bilirubin 2.1 mg/dL (0.2-1.3) H 02/09/18 05:03 AST 163 U/L (17-59) H D 02/09/18 05:03 ALT 71 U/L (21-72) 02/09/18 05:03 Alkaline Phosphatase 127 U/L (38-126) H D 02/09/18 05:03 Total Creatine Kinase 269 U/L (55-170) H 02/07/18 10:07 CK-MB (Mass) 1.49 ng/mL (0.0-3.38) 02/07/18 10:07 Troponin I 0.0210 ng/mL (0.00-0.120) 02/07/18 10:07 Total Protein 5.7 g/dL (6.3-8.3) L 02/09/18 05:03 Albumin 2.8 g/dL (3.5-5.0) L 02/09/18 05:03 Globulin 2.9 gm/dL (2.2-3.9) 02/09/18 05:03 Albumin/Globulin Ratio 0.9 (1.0-2.1) L 02/09/18 05:03 Lipase < 10 U/L (23-300) L 02/07/18 10:07 Prostate Specific Ag 0.647 ng/mL (0.00-4.0) 02/07/18 16:09 Vitamin B12 627 pg/mL (239-931) 02/08/18 11:50 25-OH Vitamin D Total < 12.8 NG/ML (30.0-100.0) L 02/07/18 16:09 Folate 5.7 ng/mL 02/08/18 11:50 Procalcitonin 17.41 NG/ML (0.19-0.49) H 02/07/18 20:04 Free T4 0.89 ng/dL (0.78-2.19) 02/07/18 16:09 TSH 3rd Generation 1.10 mIU/L (0.46-4.68) 02/07/18 16:09 Venous Blood Potassium 2.8 mmol/L (3.6-5.2) L 02/07/18 20:10 Urine Color Yellow (YELLOW) 02/08/18 18:42 Urine Clarity Hazy (Clear) 02/08/18 18:42 Urine pH 5.0 (5.0-8.0) 11 18:42 Ur Specific [place] 1.026 (1.003-1.030) 02/08/18 18:42 Urine Protein 1+ mg/dL (NEGATIVE) H 02/08/18 18:42 Urine Glucose (UA) 1+ mg/dL (Normal) H 02/08/18 18:42 Urine Ketones Negative mg/dL (NEGATIVE) 02/08/18 18:42 Urine Blood 3+ (NEGATIVE) H 02/08/18 18:42 Urine Nitrate Negative (NEGATIVE) 02/08/18 18:42 Urine Bilirubin Negative (NEGATIVE) 02/08/18 18:42 Urine Urobilinogen 2.0 mg/dL (0.2-1.0) 11 18:42 Ur Leukocyte Esterase Neg Estelita/uL (Negative) 02/08/18 18:42 Urine WBC (Auto) 5 /hpf (0-5) 02/08/18 18:42 Urine RBC (Auto) 6 /hpf (0-3) H 02/08/18 18:42 Ur Squamous Epith Cells < 1 /hpf (0-5) 02/08/18 18:42 Urine Bacteria Few (<OCC) H 02/08/18 18:42 Hyaline Casts 3-5 /lpf (0-2) H 02/07/18 11:33 Stool Occult Blood Negative (NEGATIVE) 02/08/18 06:53 HIV 1&2 Antibody Screen Negative (NEGATIVE) 02/08/18 08:57 H.influenzae Type B Ag Not required (NEGATIVE) 02/08/18 14:49 Ur L.pneumophila Ag Negative (NEGATIVE) 02/08/18 14:49 Mycoplasma pneumon IgM Negative (NEGATIVE) 02/08/18 14:49 N.meningitidis ACY/W135 Not required (NEGATIVE) 02/08/18 14:49 N.meningi B/E.coli K1 Ag Not required (NEGATIVE) 02/08/18 14:49 Group B Strep Antigen Not required (NEGATIVE) 02/08/18 14:49 S. pneumoniae Antigen Negative (NEGATIVE) 02/08/18 14:49 - Hospital Course Hospital Course: Patient is an 88 year old Albanian speaking male who presents from home due generalized weakness. As per family, patient has poor PO intake for the past 1-2 weeks. Also for the past 2 months, the family has been noticing that he has been losing weight. On admission, patient was found to be septic. Patient had fever (Tmax: 102F), neutropenia, tachycardia, elevated lactic acid. 1. Sepsis Pneumonia Urinary Tract Infection Assessment/Plan * Criteria: Fever (Tmax: 102F), neutropenia, tachycardia, elevated procalcitonin * Suspected source: urine * Lactic acid: 2.2-->4.8-->2.8 * Infectious Disease (Dr. Chirinos) on case * Zosyn 3.375g IV Q6H (active since 02/07/18) * Azithromycin 500mg IV qdaily (active since 02/07/18) 2. Altered Mental Status Assessment/Plan * likely secondary to sepsis * CT Head: moderate diffuse confluent chronic white matter ischemic changes seen extending peripherally into deep and subcortical white matter both cerebral hemispheres. Extension of these changes into the white matter tracts of both basal nuclei. Scattered more discrete chronic appearing bilateral basal nuclear lacunar ype of infarcts. moderate general volume loss 3. Failure to Thrive * Patient is very weak and cachectic * Strong smoking history abnormal CT chest/abdomen * Likely also fighting off pneumonia and urinary tract infection * prominent smoking history 4. Prior history of stroke Assessment/Plan * CT Head: moderate diffuse confluent chronic white matter ischemic changes seen extending peripherally into deep and subcortical white matter both cerebral hemispheres. Extension of these changes into the white matter tracts of both basal nuclei. Scattered more discrete chronic appearing bilateral basal nuclear lacunar ype of infarcts. moderate general volume loss 4. Neutropenia Anemia Thrombocytopenia Assessment/Plan * Heme-oncology on case * suspected sepsis vs malignancy * Check HIV 1 and 2 5. Emphysema Assessment/Plan * CT Chest/Abdomen (02/07/18): extensive and severe centriolubular panlobular and paraseptal emphysematous changes are present. large bulla seen in posteromedial aspect of right lower lobe. Redemonstrared is pleural based nodular denisty right lateral upper lobe measuring [id number] and exhibits spiculated anterior medial and posterior borders. Patchy infiltrate changes in the posterior aspect right upper lobe, Atectasis and bronchiectasis changes in the right lung base extending superiorly into upper lobe . More dense triaangular-shaped consolidation bordering the posteromedial pleural surface superior aspect right upper lobe. Ascending thoracic aorta is slighlty dilated measuring 3.9cm * Duoneb 3ml INH Q4H [place] shortness of breathe * Start Spiriva 18mcg inhaled * Patient is a heavy smoker per review of EMR * Pulmonary consult in light of emphysema and spiculated nodule 6. Smoking History Assessment/Plan * Nicoderm patch daily * patient is very weak unable to properly benefits counselor against smoking at this time 7. Abnormal UA Assessment/Plan * pending urine culture * infectious disease on board 8. 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 Possible sacral decub Assessment/Plan * Turn [id number] * Wound care nursing referral Patient code status: DNR/DNI Patient 02/09/2018, 10:56 AM Please see pronouncement of note. Discharge Exam - Additional Findings Additional findings: See pronouncement of note Discharge Plan - Follow Up Plan Condition: GOOD Disposition: WITH WITHOUT AUTOPSY <Eduardo Marshall - Last Filed: 02/09/18 18:58> Provider - Provider Date of Admission: 02/07/18 13:35 Attending physician: Eduardo Marshall DO Hospital Course - Lab Results Lab Results: Micro Results 02/07/18 10:30 Blood Blood Culture - Preliminary NO GROWTH AFTER 48 HOURS 02/07/18 12:10 Blood Blood Culture - Preliminary NO GROWTH AFTER 48 HOURS 02/07/18 11:33 Urine Urine Culture - Final Proteus Mirabilis Beta Hemolytic Strep Group B 02/07/18 22:05 Nose MRSA Culture (Admit) - Final MRSA NOT DETECTED Most Recent Lab Values WBC 3.8 K/uL (4.8-10.8) L D 02/09/18 05:03 RBC 2.66 Mil/uL (4.40-5.90) L 02/09/18 05:03 Hgb 9.1 g/dL (12.0-18.0) L 02/09/18 05:03 Hct 27.4 % (35.0-51.0) L 02/09/18 05:03 MCV 103.0 fL (80.0-94.0) H 02/09/18 05:03 MCH 34.3 pg (27.0-31.0) H 02/09/18 05:03 MCHC 33.3 g/dL (33.0-37.0) 02/09/18 05:03 RDW 14.7 % (11.5-14.5) H 02/09/18 05:03 Plt Count 76 K/uL (130-400) L 02/09/18 05:03 MPV 10.5 fL (7.2-11.7) 02/09/18 05:03 Neut % (Auto) 71.0 % (50.0-75.0) 02/09/18 05:03 Lymph % (Auto) 15.0 % (20.0-40.0) L 02/09/18 05:03 Ralls % (Auto) 14.0 % (0.0-10.0) H 02/09/18 05:03 Eos % (Auto) 0.0 % (0.0-4.0) 02/09/18 05:03 Baso % (Auto) 0.0 % (0.0-2.0) 02/09/18 05:03 Neut # (Auto) 2.7 K/uL (1.8-7.0) 02/09/18 05:03 Lymph # (Auto) 0.6 K/uL (1.0-4.3) L 02/09/18 05:03 Ralls # (Auto) 0.5 K/uL (0.0-0.8) 02/09/18 05:03 Eos # (Auto) 0.0 K/uL (0.0-0.7) 02/09/18 05:03 Baso # (Auto) 0.0 K/uL (0.0-0.2) 02/09/18 05:03 Differential Comment 02/08/18 06:55 Smear Path Review 02/07/18 10:07 Retic Count 0.5 % (0.5-1.5) 02/07/18 16:09 Haptoglobin 162.7 mg/dL (30.0-200.0) 02/07/18 16:09 PT 16.8 SECONDS (9.7-12.2) H 02/08/18 06:55 INR 1.5 02/08/18 06:55 APTT 36 SECONDS (21-34) H 02/08/18 06:55 pO2 22 mm/Hg (30-55) L 02/07/18 20:10 VBG pH 7.37 (7.32-7.43) 02/07/18 20:10 VBG pCO2 56 mmHg (40-60) 02/07/18 20:10 VBG HCO3 27.5 mmol/L 02/07/18 20:10 VBG Total CO2 34.1 mmol/L (22-28) H 02/07/18 20:10 VBG O2 Sat (Calc) 34.5 % (40-65) L 02/07/18 20:10 VBG Base Excess 5.5 mmol/L (0.0-2.0) H 02/07/18 20:10 VBG Potassium 2.8 mmol/L (3.6-5.2) L 02/07/18 20:10 Sodium 148.0 mmol/l (132-148) 02/07/18 20:10 Chloride 110.0 mmol/L (98-107) H 02/07/18 20:10 Glucose 98 mg/dl (75-110) 02/07/18 20:10 Lactate 4.9 mmol/L (0.7-2.1) H* 02/07/18 20:10 FiO2 21.0 % 02/07/18 10:08 Blood Gas Comments High lactate value 02/07/18 20:10 Crit Value Called To genevieve High 02/07/18 20:10 Crit Value Called By Kei ziegler 02/07/18 20:10 Crit Value Read Back Y 02/07/18 20:10 Blood Gas Notified Time 202202/07/18 20:10 Sodium 146 mmol/L (132-148) 02/09/18 05:03 Potassium 3.3 mmol/L (3.6-5.2) L 02/09/18 05:03 Chloride 110 mmol/L (98-107) H 02/09/18 05:03 Carbon Dioxide 25 mmol/L (22-30) 02/09/18 05:03 Anion Gap 14 (10-20) 02/09/18 05:03 BUN 41 mg/dL (9-20) H 02/09/18 05:03 Creatinine 1.6 mg/dL (0.8-1.5) H 02/09/18 05:03 Est GFR ( Amer) 50 02/09/18 05:03 Est GFR (Non-Af Amer) 41 02/09/18 05:03 POC Glucose (mg/dL) 85 mg/dL (65-110) 02/09/18 07:12 Random Glucose 107 mg/dL (75-110) 02/09/18 05:03 Hemoglobin A1c 5.1 % (4.2-6.5) 02/07/18 16:09 Lactic Acid 2.8 mmol/L (0.7-2.1) H 02/08/18 00:45 Calcium 7.4 mg/dl (8.6-10.4) L 02/09/18 05:03 Phosphorus 2.3 mg/dL (2.5-4.5) L 02/08/18 08:57 Magnesium 2.0 mg/dL (1.6-2.3) 02/08/18 06:55 Iron < 10 ug/dL (49-181) L 02/07/18 16:09 TIBC 181 ug/dL (250-450) L 02/07/18 16:09 % Saturation 5.52 (20-55) L 02/07/18 16:09 Ferritin 456.0 ng/mL 02/07/18 16:09 Total Bilirubin 2.1 mg/dL (0.2-1.3) H 02/09/18 05:03 AST 163 U/L (17-59) H D 02/09/18 05:03 ALT 71 U/L (21-72) 02/09/18 05:03 Alkaline Phosphatase 127 U/L (38-126) H D 02/09/18 05:03 Total Creatine Kinase 269 U/L (55-170) H 02/07/18 10:07 CK-MB (Mass) 1.49 ng/mL (0.0-3.38) 02/07/18 10:07 Troponin I 0.0210 ng/mL (0.00-0.120) 02/07/18 10:07 Total Protein 5.7 g/dL (6.3-8.3) L 02/09/18 05:03 Albumin 2.8 g/dL (3.5-5.0) L 02/09/18 05:03 Globulin 2.9 gm/dL (2.2-3.9) 02/09/18 05:03 Albumin/Globulin Ratio 0.9 (1.0-2.1) L 02/09/18 05:03 Lipase < 10 U/L (23-300) L 02/07/18 10:07 Prostate Specific Ag 0.647 ng/mL (0.00-4.0) 02/07/18 16:09 Vitamin B12 627 pg/mL (239-931) 02/08/18 11:50 25-OH Vitamin D Total < 12.8 NG/ML (30.0-100.0) L 02/07/18 16:09 Folate 5.7 ng/mL 02/08/18 11:50 Procalcitonin 17.41 NG/ML (0.19-0.49) H 02/07/18 20:04 Free T4 0.89 ng/dL (0.78-2.19) 02/07/18 16:09 TSH 3rd Generation 1.10 mIU/L (0.46-4.68) 02/07/18 16:09 Venous Blood Potassium 2.8 mmol/L (3.6-5.2) L 02/07/18 20:10 Urine Color Yellow (YELLOW) 02/08/18 18:42 Urine Clarity Hazy (Clear) 02/08/18 18:42 Urine pH 5.0 (5.0-8.0) 02/08/18 18:42 Ur Specific [place] 1.026 (1.003-1.030) 02/08/18 18:42 Urine Protein 1+ mg/dL (NEGATIVE) H 02/08/18 18:42 Urine Glucose (UA) 1+ mg/dL (Normal) H 02/08/18 18:42 Urine Ketones Negative mg/dL (NEGATIVE) 02/08/18 18:42 Urine Blood 3+ (NEGATIVE) H 02/08/18 18:42 Urine Nitrate Negative (NEGATIVE) 02/08/18 18:42 Urine Bilirubin Negative (NEGATIVE) 02/08/18 18:42 Urine Urobilinogen 2.0 mg/dL (0.2-1.0) 11 18:42 Ur Leukocyte Esterase Neg Estelita/uL (Negative) 02/08/18 18:42 Urine WBC (Auto) 5 /hpf (0-5) 02/08/18 18:42 Urine RBC (Auto) 6 /hpf (0-3) H 11 18:42 Ur Squamous Epith Cells < 1 /hpf (0-5) 02/08/18 18:42 Urine Bacteria Few (<OCC) H 02/08/18 18:42 Hyaline Casts 3-5 /lpf (0-2) H 02/07/18 11:33 Stool Occult Blood Negative (NEGATIVE) 02/08/18 06:53 HIV 1&2 Antibody Screen Negative (NEGATIVE) 02/08/18 08:57 H.influenzae Type B Ag Not required (NEGATIVE) 02/08/18 14:49 Ur L.pneumophila Ag Negative (NEGATIVE) 02/08/18 14:49 Mycoplasma pneumon IgM Negative (NEGATIVE) 02/08/18 14:49 N.meningitidis ACY/W135 Not required (NEGATIVE) 02/08/18 14:49 N.meningi B/E.coli K1 Ag Not required (NEGATIVE) 02/08/18 14:49 Group B Strep Antigen Not required (NEGATIVE) 02/08/18 14:49 S. pneumoniae Antigen Negative (NEGATIVE) 02/08/18 14:49 Attending/Attestation - Attestation I have personally seen and examined this patient.: Yes I have fully participated in the care of the patient.: Yes I have reviewed all pertinent clinical information, including history, physical exam and plan: Yes Notes (Text): 02/09/18 18:56 Medical attending: Patient before I could come and evaluate the patient this morning. As mentioned previously the patient was DNR and DNI and the prognosis was extremely poor with multiple serious medical histories including UTI and sepsis as well as severe emphesema and also severe weightloss and failure to thrive. EDRS has been started and filled out. Eduardo Marshall 02/09/18 18:58
--- NOTE | 2018-02-09 14:04 | RAD ---
Date of service: 02/09/2018 HISTORY: PICC Insertion COMPARISON: 02/08/2018 FINDINGS: LUNGS: There is a diffuse alveolar infiltrate which has increased on the left side. Pattern is most consistent with pulmonary edema. Pneumonia is possible. PLEURA: Small pleural effusions CARDIOVASCULAR: Aortic calcification Normal cardiac size. No pulmonary vascular congestion. OSSEOUS STRUCTURES: No significant abnormalities. VISUALIZED UPPER ABDOMEN: Nasogastric tube is in satisfactory position OTHER FINDINGS: Right-sided PICC line terminates in satisfactory position at the caval atrial junction IMPRESSION: There is a diffuse alveolar infiltrate which has increased on the left side. Pattern is most consistent with pulmonary edema. Pneumonia is possible.
== END 2018-02-09 14:00 | DRG 871 ==
LOC: C.ER 09:08 → C.9E 13:35 → C.9I 20:25
PROVIDERS: ADMIT Hospitalist; ATTEND Hospitalist
PROC: 02HV33Z Insertion of Infusion Device into Superior Vena Cava, Percutaneous Approach (ICD-10-PCS; principal; 2018-02-09)
DX: A41.9 Sepsis, unspecified organism (principal); J18.9 Pneumonia, unspecified organism; D61.818 Other pancytopenia; J47.0 Bronchiectasis with acute lower respiratory infection; N39.0 Urinary tract infection, site not specified; R64 Cachexia; F17.290 Nicotine dependence, other tobacco product, uncomplicated; J43.9 Emphysema, unspecified; R62.7 Adult failure to thrive; R65.20 Severe sepsis without septic shock; Z51.5 Encounter for palliative care; Z66 Do not resuscitate; Z80.42 Family history of malignant neoplasm of prostate; Z86.73 Personal history of transient ischemic attack (TIA), and cerebral infarction without residual deficits